=== PATIENT | female | born 1960 | race Caucasian/White ===

== ENCOUNTER 2022-07-27 19:20 | Emergency (ER) | payer OTHER, SELFPAY ==
--- NOTE | ~2022-07-27 | CT_ITS ---
EXAMINATION: CT abdomen pelvis wo con DATE: 07/27/2022 22:47 INDICATION: back pain with abdominal pain TECHNIQUE: Computed tomography (CT) of the abdomen and pelvis was performed without intravenous contr ast. Automated exposure control and iterative reconstruction technique were employed. The dose-length product was 1222.48 mGy-cm. COMPARISON: None. FINDINGS: Lower thorax: Aortic and coronary artery calcification. Dependent atelectasis. Small uncomplicated fa t-containing anterior diaphragmatic hernia. Liver: Normal. Biliary/Gallbladder: Gallbladder is absent. No bile duct dilation. Pancreas: No mass or duct dilation. Spleen: Normal. Adrenals:No mass. Kidneys: Bilateral cortical thinning and scarring. Medullary calcinosis. Bilateral nephrolithiasis. N o hydronephrosis or distal collecting system stone. Simple left midpole cyst. GI tract: No small or large bowel dilation. Appendix not visualized. Diverticulosis without diverticu litis. Mesentery/Peritoneum: No ascites, mass, or free air. Retroperitoneum: No mass. Atherosclerotic abdominal aortic and/or arterial calcifications. Pelvis: Pelvic organs are within normal limits. Soft Tissues: Soft tissues and body wall unremarkable. Bones: No acute osseous finding. IMPRESSION: No acute abdominopelvic process detected. Reviewed, dictated and finalized at location K.
[2022-07-27 19:53] VITALS: BP 146/72; PULSE 82; RESP 18; TEMP 36.4; O2SAT 99
[2022-07-27 20:40] VITALS: BP 144/74; PULSE 78; RESP 20; O2SAT 98
--- NOTE | 2022-07-27 20:54 | ED.BACK ---
HPI - Back Pain/Injury General Chief Complaint: Back Pain/Injury Stated Complaint: back pain Time Seen by Provider: 07/27/22 20:33 Source: patient and RN notes reviewed Mode of arrival: ambulatory Limitations: no limitations History of Present Illness HPI Narrative: This is a 61 year old female who presents for evaluation of lower back pain. PAtient states starting 1.5 weeks ago she developed low back pain that radiates around to have lower abdomen. This pain has been constant and worsening. It is worse with walking and breathing. She has tried taking tylenol without improvement with pain and her last dose was 2 hours ago. She reports increased urinary urgency today with incontinence because she could not make it to the restroom. She denies lower extremity numbness, tingling or weakness. She denies any injuries to cause her pain. She denies fever, chills, nausea or vomiting. She reports having sciatica to left hip 2 weeks prior to this back pain. Related Data Allergies Allergy/AdvReac Type Severity Reaction Status Date / Time No Known Allergies Allergy Verified 07/27/22 20:27 Review of Systems Review of Systems: All systems reviewed & are unremarkable except as noted in HPI and below Constitutional: Constitutional: Denies chills, Denies fatigue and Denies fever(s) Cardiovascular: Cardiovascular: Denies chest pain Gastrointestinal: Gastrointestinal: Reports abdominal pain, Denies diarrhea, Denies nausea and Denies vomiting Genitourinary: Genitourinary: Reports flank pain and Reports urinary incontinence Musculoskeletal: Musculoskeletal: Reports back pain [facility] Past Medical History Medical History (Updated 07/28/22 @ 00:28 by Shantelle Ponce MD) Hypertension Rheumatoid arthritis Surgical History Surgical History (Updated 07/27/22 @ 20:59 by Shantelle Ponce MD) History of cholecystectomy Social History Social History (Updated 07/27/22 @ 21:00 by Shantelle Ponce MD) Smoking status: Never smoker Exam Const: General: alert Nutritional Appearance: obese Orientation/consciousness: patient oriented x3 Limitations: no limitations HENMT: Head: normal to inspection Eyes: EOM: EOMs intact bilaterally Chest: Chest palpation & inspection: normal inspection of the chest Resp: Effort & Inspection: normal respiratory effort Auscultation: clear to auscultation bilaterally Cardio: Rate: regular rate Rhythm: regular rhythm Heart sounds: no murmurs GI: GI Palp: Yes Soft to palpation, Yes Tenderness to palpation present (GI), No Guarding due to palpation present (GI) and No Rigid due to palpation Auscultation: normal bowel sounds Back/Spine/Pelvis: Back: no CVA tenderness Thoracic/Lumbar Spine: thoracic and lumbar spine normal to inspection Skin: General skin exam: normal color Rashes: no rashes Wounds: no wounds Neuro: General: patient oriented x3, moves all extremities and CN's II-XI intact bilaterally Speech: normal speech Extrem: General: normal to inspection Psych: Mental Status: mental status grossly normal Course Reevaluation(s) Reevaluation #1: I Discussed with patient that she will be started on muscle relaxers and started on antibiotics for UTI. She denies any other questions or concerns. Date: 07/27/22 Time: 23:50 Vital Signs Vital signs: Vital Signs Temperature 97.6 F 07/27/22 19:53 Pulse Rate 82 07/27/22 19:53 Respiratory Rate 18 07/27/22 19:53 Blood Pressure 146/72 H 07/27/22 19:53 Pulse Oximetry 99 07/27/22 19:53 Oxygen Delivery Room Air 07/27/22 19:53 Temperature 97.6 F 07/27/22 19:53 Pulse Rate 84 07/27/22 23:45 Respiratory Rate 20 07/27/22 23:45 Blood Pressure 136/81 07/27/22 23:45 Pulse Oximetry 100 07/27/22 23:45 Oxygen Delivery Room Air 07/27/22 19:53 MDM - Back Pain/Injury Lab Data Attestation: I reviewed the patient's lab results. Result diagrams: 07/27/22 21:12 07/27/22 21
[2022-07-27] MEDS: ONDANSETRON INJ 4 MG/2 ML VIAL IV PUSH (21:21)
[2022-07-27] MEDS: MORPHINE SULFATE (*CRX) 4 MG/ML INJ IV PUSH (21:21)
[2022-07-27 21:23] LABS: Hematocrit 37.4 % (37.0-47.0); Hemoglobin 12.3 g/dL (12.0-15.0); Mean Corpuscular HGB Conc 32.9 g/dl (32-36); Mean Corpuscular Hemoglobin 34.6 pg (26-34); Mean Corpuscular Volume 105.1 fl (80-100); Mean Platelet Volume 9.1 fl (7.4-10.4); Platelet Count Result 223 k/mm3 (150-375); Red Blood Count 3.56 M/mm3 (4.2-5.4); Red Cell Distribution Width 15.1 % (11.5-14.5); White Blood Count 6.6 K/mm3 (4.5-10.0)
[2022-07-27 21:24] LABS: Appearance Urine Clear (Clear); Bilirubin Urine Negative (Negative); Blood Urine Negative (Negative); Color Urine Yellow (Yellow); Glucose Urine UA Negative (Negative); Ketones Urine Negative (Negative); Leukocyte Esterase Ur 2+ LEU/UL (Negative); Nitrate Urine Negative (Negative); Protein Urine Negative (Negative); Specific Grav Ur 1.015 (1.001-1.035); Urobilinogen Urine 0.2 mg/dL (<2.0); pH Urine 5.5 (5.0-9.0)
[2022-07-27 21:35] VITALS: BP 141/71; PULSE 71; RESP 16; O2SAT 100
[2022-07-27 21:39] LABS: Partial Thromboplastin Time 27.1 SECONDS (22.3-36.8); Prothrombin Time 12.9 Seconds (11.1-14.7)
[2022-07-27 21:45] LABS: RBC Urine 0-2 /hpf (0-2); Squamous Epithelial Cell Urine Few /hpf (Few); WBC Urine 0-3 /hpf
[2022-07-27 21:46] LABS: Add Urine Microscopic? YES
[2022-07-27 21:52] LABS: Alanine Aminotransferase 31 U/L (6-35); Albumin Level 4.2 g/dL (3.5-5.1); Alkaline Phosphatase 53 U/L (38-126); Anion Gap 13 mmol/L (8-16); Aspartate Amino Transferase 39 U/L (14-36); Band Neutrophils Percent 3 % (0-6); Bilirubin,Total 0.4 mg/dL (0.2-1.3); Blood Urea Nitrogen 29 mg/dL (7-17); Calcium 9.8 mg/dL (8.4-10.2); Carbon Dioxide 25 mmol/L (22-30); Chloride 101 mmol/L (98-107); Eosinophils Absolute Manual 0.13 K/mm3 (0.02-0.5); Eosinophils Percent Manual 2 % (0-4); Estimated Glomerular Filt Rate 27; Glucose 112 mg/dL (65-110); Lymphocytes Absolute Manual 2.57 K/mm3 (1.1-4.5); Metamyelocytes Percent 3 %; Monocytes Absolute Manual 0.33 K/mm3 (0.1-0.90); Monocytes Percent Manual 5 % (3-9); Myelocytes Percent 2 %; Neutrophils Absolute Manual 3.16 K/mm3 (1.7-7.2); Neutrophils Percent Manual 45 % (46-73); Nucleated Red Blood Cells 1 %; Plasma Cells 1; Platelet Estimate Adequate (Adequate); Potassium 4.2 mmol/L (3.4-5.0); Sodium 139 mmol/L (137-145); Total Cells Counted 100
[2022-07-27 21:53] LABS: Anisocytosis 2+ (NORMAL); Atypical Lymphocytes Present; Macrocytosis 2+ (NORMAL); Smudge Cells MODERATE; Spherocytes 1+ (NORMAL)
[2022-07-27 21:54] LABS: Stomatocytes 1+ (NORMAL)
[2022-07-27 21:55] LABS: Schistocytes None Seen (NORMAL)
[2022-07-27] MEDS: SODIUM CHLORIDE 0.9% IV 1,000 ML 999 ML IV CONT (22:09)
[2022-07-27 22:26] VITALS: BP 138/74; PULSE 80; RESP 20; O2SAT 98
[2022-07-27 23:45] VITALS: BP 136/81; PULSE 84; RESP 20; O2SAT 100
== END 2022-07-28 00:42 | disposition home or self-care (01) ==
PROVIDERS: Emergency Provider General Practice; PCP Internal Medicine
DX: M54.50 Low back pain, unspecified (principal); I12.9 Hypertensive chronic kidney disease with stage 1 through stage 4 chronic kidney disease, or unspecified chronic kidney disease; N18.9 Chronic kidney disease, unspecified; M06.9 Rheumatoid arthritis, unspecified; N39.0 Urinary tract infection, site not specified
CPT/HCPCS: 36415; 74176; 80053; 81001; 85025; 85610; 85730; 96361; 96374; 96375; 99284; J2270; J2405; J7030

== ENCOUNTER 2025-05-08 11:32 | Inpatient (IN) | payer OTHER, SELFPAY ==
[2025-05-08] VITALS (9 sets, daily range): BP systolic 77–124; BP diastolic 31–86; PULSE 70–107; RESP 14–22; TEMP 36.6; O2SAT 95–100; BMI 46.0
--- NOTE | ~2025-05-08 | XR_ITS ---
EXAMINATION: XR chest 1V portable DATE: 05/08/2025 12:43 INDICATION: Hypotension TECHNIQUE: frontal view of the chest was obtained. COMPARISON: Chest radiograph dated 02/05/2018 FINDINGS: The lungs are clear with no focal airspace opacities, pulmonary edema, pleural effusion or pneumothor ax. Heart size is normal. Prominent right paracardial fat pad. IMPRESSION: 1. No acute cardiopulmonary disease. Reviewed, dictated and finalized at location B.
--- OUTSIDE RECORDS SUMMARY | 2025-05-08 11:34 | XMS_ITS | Referral Summary ---
Author Organization [facility] Address [address] [place] [address] Care Team Providers Care Glass Silverer Name Role Phone Jose Dahl MD Primary Care Provider [phone] Sam Gonsalez MD Unavailable [phone] Encounters Date Type Department Care Team Description 04/29/2025 Results Follow-Up [facility] Rheumatology [address] [facility] [address] [place] [address] Erin Jamil MD Comprehensive metabolic panel, CBC with auto differential 04/28/2025 2:15 PM CDT - 04/28/2025 11:59 PM CDT Hospital Encounter [facility] [address] [place] [address] Erin Jamil MD Discharge Disposition: Discharge to home or self care 04/28/2025 2:00 PM CDT Lab [facility] Endocrinology Metabolism and Lipid [address] [facility] Advanced Medicine 5th [place] [address] [place] [address] High risk medication use 04/28/2025 1:30 PM CDT Office Visit [facility] Rheumatology [facility] Medicine 5th [place] [address] [place] [address] Erin Jamil MD Rheumatoid arthritis with rheumatoid factor of multiple sites without organ or systems involvement (HCC) (Primary Dx); Neuropathy of left ulnar nerve at wrist; High risk medication use; Chronic gout involving toe without tophus, unspecified cause, unspecified laterality; Primary osteoarthritis of right knee; Age-related osteoporosis with current pathological fracture, sequela; Compression fracture of body of thoracic vertebra (HCC); Chronic pain syndrome 03/07/2025 7:10 PM CDT Lab [facility] ([facility]) [address] [place] [phone] Osteoporosis with current pathological fracture, unspecified osteoporosis type, sequela; Renal osteodystrophy; Osteoporosis, unspecified osteoporosis type, unspecified pathological fracture presence 03/07/[address] [place] [address] Mahesh Neal MD 03/07/2025 2:20 PM CDT Office Visit [address] 5th [place] [address] [place] [address] Mahesh Neal MD Osteoporosis with current pathological fracture, unspecified osteoporosis type, sequela (Primary Dx); Renal osteodystrophy; Osteoporosis, unspecified osteoporosis type, unspecified pathological fracture presence; Chronic renal impairment, stage 3b (HCC); Chronic kidney disease-mineral and bone disorder (CKD-MBD) 03/05/[address] Medical Office [address] [place] [address] Nidia Spencer DNP 02/18/2025 11:00 AM CDT Office Visit [facility] Surgery [address] [place] [address] [address] [place] [address] Delma Murray MD Lesion of pancreas 02/08/2025 11:40 AM CDT Lab [facility]) [address] [place] [phone] CKD (chronic kidney disease) stage 4, GFR 15-29 ml/min ([facility]); Pancreas cyst; Osteoporosis, unspecified osteoporosis type, unspecified pathological fracture presence from Last 3 Months Allergies No known active allergies Medications calcium carbonate-vit D3-min 600 mg calcium- 400 unit tabletIndication s:Osteoporosis Take 600 mg by mouth 2 (two) times a day 60 each 8 04/23/20 19 Active Additional Information Patient not taking.Reported on 04/28/2025 albuterol HFA (PROVENTIL HFA,VENTOLIN HFA,PROAIR HFA) 90 mcg/actuation inhaler Inhale 2 puffs every 6 (six) hours as needed for wheezing 1 Inhaler 4 04/23/20 19 Active nortriptyline (PAMELOR) 25 mg capsule TAKE 1 CAPSULE BY MOUTH EVERY DAY IN THE EVENING 90 capsule 3 03/22/20 22 Active nitroglycerin (NITROSTAT) 0.4 mg SL tablet 03/09/20 23 Active HYDROcodone-acet aminophen (NORCO) 5-325 mg per tablet Take by mouth 3 (three) times a day as needed 11/07/19 24 Active tiZANidine (ZANAFLEX) 2 mg tablet Take 1 tablet (2 mg total) by mouth every 8 (eight) hours as needed for muscle spasms 20 tablet 12/13/19 24 Active acetaminophen (TYLENOL) 500 mg tabletIndication s:Pain Take 1-2 tablets (500-1,000 mg total) by mouth every 6 (six) hours as needed for pain (1 tablet for mild to moderate pain. 2 tablets for severe pain) 30 tablet 12/13/19 24 Active lidocaine (ASPERCREME) 4 % adhesive patch,medicated Place 1 patch on the skin daily as needed (pain) 10 patch 12/13/19 24 Active furosemide (LASIX) 20 mg tablet 12/11/19 24 Active lisinopriL (PRINIVIL,ZESTRI L) 40 mg tablet 12/10/19 24 Active cyclobenzaprine (FLEXERIL) 5 mg tablet TAKE 1 TABLET BY MOUTH EVERY DAY AT BEDTIME FOR SPASMS 12/28/19 24 Active doxycycline (ADOXA) 100 mg tablet 03/03/20 24 Active benzonatate (TESSALON) 200 mg capsule 03/03/20 24 Active folic acid (FOLVITE) 1 mg tabletIndication s:Folate Deficiency Take 2 tablets (2,000 mcg total) by mouth daily 180 tablet 3 03/05/20 24 Active colchicine (COLCRYS) 0.6 mg tabletIndication s:prevention of acute gout attack Take 0.5 tablets (0.3 mg total) by mouth daily Stop medication and notify provider if develop diarrhea 15 tablet 11 03/08/20 24 Active amLODIPine (NORVASC) 5 mg tablet Take 1 tablet (5 mg total) by mouth daily 90 tablet 3 04/18/20 24 Active amLODIPine (NORVASC) 10 mg tablet Take 1 tablet (10 mg total) by mouth daily 06/27/20 24 Active atorvastatin (LIPITOR) 40 mg tablet Take 1 tablet (40 mg total) by mouth daily 90 tablet 3 11/21/19 25 Active abaloparatide 80 mcg (3,120 mcg/1.56 mL) pen injectorIndicati ons:Age-related osteoporosis without current pathological fracture Inject 0.04 mL (80 mcg total) under the skin daily 1.56 mL 12/10/19 25 Active pen needle, diabetic (BD Ultra-Fine Mini Pen Needle) 31 gauge x /16 needleIndication s:Age-related osteoporosis without current pathological fracture Use one needle daily with pen 100 each 12/10/19 25 Active methotrexate 2.5 mg tabletIndication s:Rheumatoid Arthritis Take 6 tablets (15 mg total) by mouth every 7 days 72 tablet 1 01/09/20 25 Active dapagliflozin propanediol (FARXIGA) 5 mg tablet Take 1 tablet (5 mg total) by mouth daily 90 tablet 3 01/17/20 25 026 Active allopurinoL (ZYLOPRIM) 100 mg tabletIndication s:Chronic gout involving toe without tophus, unspecified cause, unspecified laterality TAKE 1 TABLET BY MOUTH EVERY DAY 90 tablet 02/12/20 25 Active ibuprofen (ADVIL,MOTRIN) 800 mg tablet as needed 04/28/20 25 Active metFORMIN (GLUCOPHAGE) 500 mg tablet Take 1 tablet (500 mg total) by mouth daily 04/10/20 25 Active methylPREDNISolo ne (MEDROL DOSEPACK) 4 mg Dosepack 5 mg 03/03/20 24 025 Discontin ued(Thera py completed ) predniSONE (DELTASONE) 5 mg tablet Take 1 tablet (5 mg) by mouth every morning 04/10/20 25 025 Discontin ued(Thera py completed ) Active Problems Problem Noted Date Diagnosed Date Primary osteoarthritis of right knee 07/16/2024 Mild left ventricular systolic dysfunction (LVSD ) 12/13/2023 Pyelonephritis 11/13/2023 Assessment & Plan (11/15/2023 12:23 PM PIG MACHINE SUPERVISOR): Presents with several days of nausea, vomiting and loose stools. UA with 4+ bacteria and >50 WBCs -CT abdomen with concern for bilateral pyelonephritis -urine culture and blood cultures grew ghosh susceptible E.coli -given cefepime, vancomycin, ceftriaxone and flagyl while in ER -transition ceftriaxone to cefdinir to complete course -repeat blood cultures 11/14 no growth to date -continue supportive care and judicious volume resuscitation - given 500ml NS bolus yesterday, encourage po intake Assessment & Plan (11/14/2023 4:16 PM PIG MACHINE SUPERVISOR): Presents with several days of nausea, vomiting and loose stools. UA with 4+ bacteria and >50 WBCs -CT abdomen with concern for bilateral pyelonephritis -urine culture and blood cultures growing E. coli -given cefepime, vancomycin, ceftriaxone and flagyl while in ER -continue ceftriaxone 2g q24h -repeat blood cultures -continue supportive care and judicious volume resuscitation NSTEMI (non-ST elevated myocardial infarction) 0 11/12/2023 Assessment & Plan (11/15/2023 12:27 PM PIG MACHINE SUPERVISOR): -elevated troponin to 3786 in ED with no acute ischemic changes on EKG -previous [facility] 10/20/22 with 40% mid LAD, 75% ostial small 1st diagonal, 50% mid RCA -elevated troponin likely reflects increased demand in setting of infection -treat infection as outlined above -tele -TTE with EF 48% (decreased from 55-60% in 10/2022) -plan for repeat ischemic eval as an outpatient once infection and EUNICE resolved Assessment & Plan (11/14/2023 4:17 PM PIG MACHINE SUPERVISOR): -elevated troponin to 3786 in ED with no acute ischemic changes on EKG -previous [facility] 10/20/22 with 40% mid LAD, 75% ostial small 1st diagonal, 50% mid RCA -elevated troponin likely reflects increased demand in setting of infection -treat infection as outlined above -TTE -tele Chronic coronary artery disease 10/11/2023 BMI 40.0-44.9, adult 10/11/2023 Osteoarthritis of left knee, unspecified osteoarthritis type 09/21/2023 Assessment & Plan (09/22/2023 4:57 PM PIG MACHINE SUPERVISOR): Patient with history of bilateral osteoarthritis now presenting with left greater than right knee pain inability to stand. - plan for supportive care with Tylenol, topical therapy, and opioids as needed - given history of gout and recent initiation of Lasix, may also be gout flare. Uric acid 11.3 - patient also with history of seronegative arthritis however no other joint involvement at this time. ESR and CRP are elevated. - rheumatology ddx included likely OA given the mild nature of her swelling and joint warmth without erythema. However, RA and gout flare are also possible and recommended 7 days of 20mg prednisone and follow up with them as scheduled in Nov. - PT/OT recommended outpatient therapy, referrals sent [place] (obstructive sleep apnea) 04/27/2023 Assessment & Plan (09/03/2024 10:48 AM CDT): Patient continue to wear CPAP at 8 cm water pressure while sleeping. Her DME is [facility]. Assessment & Plan (11/15/2023 12:24 PM PIG MACHINE SUPERVISOR): -continue home CPAP Assessment & Plan (11/13/2023 6:43 PM PIG MACHINE SUPERVISOR): -continue home CPAP Assessment & Plan (09/21/2023 4:09 PM PIG MACHINE SUPERVISOR): CPAP at 8 Assessment & Plan (08/31/2023 11:54 AM CDT): Patient continue to wear her CPAP at 8 cm water pressure while sleeping. Her DME is [facility]. I have sent an order over for new supplies. Assessment & Plan (04/27/2023 10:50 AM CDT): The patient continues to benefit from CPAP at 6 cm water pressure. Her AHI is slightly elevated at 7.7 and she has been using the CPAP unit more than 5 hours per night. I will send an order to [facility] to increase the CPAP setting to 8 cm water. She will follow up here in 4 months. PLMD (periodic limb movement disorder) Assessment & Plan (09/03/2024 10:48 AM CDT): The patient denies that her limbs are moving at night when she sleeps Assessment & Plan (08/31/2023 11:54 AM CDT): The patient denies that her limbs are moving at night when she sleeps. The patient did have a normal iron and ferritin level. Assessment & Plan (04/27/2023 10:49 AM CDT): The patient has periodic limb movements in sleep but she is asymptomatic. I will not start any medications and she has an elevated BUN and creatinine of 40/1.62 from recent blood work. I will check iron studies. Pain of right hip joint 04/27/2023 Osteoarthritis of lumbar spine 08/02/2022 Chronic kidney disease-mineral and bone disorder (CKD-MBD) 08/02/2022 Assessment & Plan (03/07/2025 3:32 PM CDT): CKD-MBD with CKD 3b c/b rHPT and osteoporosis -PTH likely at target given Ca/Phos wnl -25D level NA and will assess - target > 40 ng/mL -OP: Please see OP section on management Chronic midline low back pain without sciatica 1 11/24/2017 Assessment & Plan (04/23/2019 8:43 AM CDT): - Xray with multilevel degenerative disc disease - Stable, seen by neursosurgery in the past with plan to for surgery after she looses 50Ib but currently she is not amenable to surgery given her improved back pain. - No alarm symptoms - Continue healthy eating, weight loss and exercise - Continue tylenol 1000 mg q8h Assessment & Plan (09/25/2018 9:39 AM PIG MACHINE SUPERVISOR): - Xray with multilevel degenerative disc disease - Stable, seen by neursosurgery in the past with plan to for surgery after she looses 50Ib but currently she is not amenable to surgery given her improved back pain. - Continue healthy eating, weight loss and exercise - Continue tylenol 1000 mg q8h High risk medication use 07/13/2018 Assessment & Plan (08/29/2019 9:38 AM CDT): - cont rheum follow up. - patient out of folic acid, refilled today. Osteoporosis 05/16/2014 Assessment & Plan (03/07/2025 3:27 PM CDT): Osteoporosis with vertebral factures, LS BMD in osteopenic range and FN and TH T-Scores at -3.2 and -2.6 respectively. She has been on tymlos since January 2025. She will continue treatment x 2 years. Today we will assess treatment efficacy and obtain BSAP, CTX, PTH, D and to assess for adverse effects Phos/Ca/UA. We will base drug dosage and management on those labs. If she is noted to have excessive bone turnover, we will consider another course of action, including initiation of a bisphosphonate. Cristina is not indiacted due to the vert fx. She is unable to perform much exercise due to high degree of back pain from the vert fx. She has done some PT and she will restart once the back pain improves. Assessment & Plan (04/23/2019 8:50 AM CDT): - According to DEXA in 04/2014. Ca and PTH wnl. - S/p 5 years of alendronate. - Repeat DEXA 2017 with Bone Mineral Density (BMD) of the left hip total of 0.850 Gm/cm2 corresponding to a T-score standard deviations from the mean of young adults of -0.8. Femoral neck is 0.682 gm/cm2 with a T-score of -1.5. - Above finding as consistent with osteopenia. - Repeat DEXA in 2019 - Continue Ca and Vit D Assessment & Plan (09/24/2018 5:26 PM PIG MACHINE SUPERVISOR): According to DEXA in 04/2014. Ca and PTH wnl. -- s/p alendronate started 01/2011 w/ improved femoral head from -2.6->-2.0 on DEXA scan -- Now off alendronate, continue to monitor - Continue Ca and Vit D Fibromyalgia 05/21/2012 Assessment & Plan (05/29/2020 9:29 AM CDT): Continue nortriptyline 25 nightly Chronic renal insufficiency, stage III (moderate ) 12/14/2011 Assessment & Plan (03/07/2025 3:30 PM CDT): CKD 3b with eGFR 30/min. Management as per primary neprhologist. Tymlos does not have any affect on kidney function, but pts with CKD given Tymlos are monitored for hyperCa, hyperUA. Ca and UA are pending and in the event of elevations, the drug interval will be extended rather than stopped. Level of kidney function does not affect the drug dose. Assessment & Plan (11/15/2023 12:32 PM PIG MACHINE SUPERVISOR): Baseline Cr 1.6-2.0 -Cr 2.37, EUNICE likely secondary to infection -monitor closely while treating pyelonephritis -renally dose meds, minimize nephrotoxins -CT with ill-defined masslike lesion left kidney upper pole. Recommend further evaluation with renal protocol MRI without and with intravenous contrast - will consider MRI as an outpatient once EUNICE resolves. Assessment & Plan (11/13/2023 6:51 PM PIG MACHINE SUPERVISOR): Baseline Cr 1.6-2.0 -currently at baseline on admission -monitor closely while treating pyelonephritis -renally dose meds, minimize nephrotoxins Assessment & Plan (09/22/2023 5:01 PM PIG MACHINE SUPERVISOR): Patient with CKD stage 3. Creatinine slightly increased from baseline however not necessarily significantly increased. Recently started on Lasix for bilateral lower extremity edema. - Will hold Lasix as patient appears euvolemic - avoid NSAIDs and renally dose meds - continued lisinopril, held lisinopril on day of discharge I/s/o K - 5.1, whole K 4.3 and Cr improving to baseline - recommended patient follow up with her primary about lasix Assessment & Plan (05/29/2020 9:31 AM CDT): Mild elevation in Cr at recent BMP w/ mild hypercalcemia. iCal and PTH at upper limites of normal today. Discussed with patient to hold off on Calcium supplements until next visit so we can recheck BMP at that time and see if that is the likely culprit of her initial lab abnormality. Assessment & Plan (04/23/2019 8:46 AM CDT): - F/w [facility] nephrology - Secondary to hypertensive nephropathy and chronic NSAID use - Serum stable at Cr 1.4 with a GFR between 40-60 - Avoid nephrotoxins, cont to f/u with nephrology Assessment & Plan (09/25/2018 3:27 PM PIG MACHINE SUPERVISOR): F/w [facility] nephrology - Secondary to hypertensive nephropathy and chronic NSAID use - Serum Cr 1.4, recheck BMP in two weeks - Avoid nephrotoxins, cont to f/u with nephrology Hypertension 02/05/2011 Assessment & Plan (11/15/2023 12:28 PM PIG MACHINE SUPERVISOR): -hold home lisinopril and amlodipine for now while treating infection -monitor closely Assessment & Plan (11/14/2023 4:18 PM PIG MACHINE SUPERVISOR): -hold home lisinopril and amlodipine for now while treating infection -monitor closely Assessment & Plan (09/22/2023 4:59 PM PIG MACHINE SUPERVISOR): Continue amlodipine and Lisinopril - held lisinopril on day of discharge Assessment & Plan (05/29/2020 9:27 AM CDT): Well controlled today. Continue Lisinopril 40 and Amlodipine 10 Assessment & Plan (08/29/2019 9:37 AM CDT): BP above goal today 150/80 - currently only taking amlodipine 10. Previously tolerated lisinopril in the past - re-start lisinopril 40 today - pt regularly takes BP at home, virtually always 150/80-90 - continue low salt diet - Pt will call if BP still elevated after several weeks on lisinopril, or if BP goes well below goal. Will watch for orthostasis, dizziness, lightheadedness, cough Assessment & Plan (04/23/2019 8:45 AM CDT): - BP initially 142/87 but then 138/80 on recheck - Continue amlodipine 10 mg and start Lisinopril 40 mg qd - No changes made to currently antihypertensive regimen - Patient instructed to limit her salt in take to less than 2 g daily and to engage in regular exercise activities Assessment & Plan (09/25/2018 3:26 PM PIG MACHINE SUPERVISOR): - BP still elevated to 162/84 - Continue amlodipine 10 mg and start Lisinopril 20 mg qd - Patient was instructed to return to clinic in two weeks for a visit with the BP nurse but seems to have problems with transportation. She was then informed to monitor her BP at home and call PCP in two weeks with readings. Rheumatoid arthritis 07/13/2006 Assessment & Plan (11/15/2023 12:19 PM PIG MACHINE SUPERVISOR): History of seronegative RA -last dose of methotrexate 11/07/23, will hold while treating infection Assessment & Plan (11/14/2023 4:07 PM PIG MACHINE SUPERVISOR): History of seronegative RA -last dose of methotrexate 11/07/23, will hold while treating infection Assessment & Plan (09/21/2023 4:09 PM PIG MACHINE SUPERVISOR): Seronegative RA followed by rheumatology MTX 15mg q week on Tuesdays and folic acid Assessment & Plan (05/29/2020 9:27 AM CDT): Cont MTX and Folic Acid per rheum Assessment & Plan (08/29/2019 9:35 AM CDT): - Follows with [facility] rheumatology - Symptoms manageable with current MTX regimen w/ no recent episodes of a flare - No boutoniere or swan neck deformity and no synovitis - No signs or symptoms of RA complication and labs are wnl - Cont to follow up with rheumatology Assessment & Plan (04/23/2019 7:55 AM CDT): - Follows with [facility] rheumatology - Symptoms manageable with current MTX regimen w/ no recent episodes of a flare - No boutoniere or swan neck deformity and no synovitis - No signs or symptoms of RA complication and labs are wnl - Cont to follow up with rheumatology Assessment & Plan (09/24/2018 5:24 PM PIG MACHINE SUPERVISOR): - Follows with [facility] rheumatology - Symptoms manageable with current MTX regimen w/ no recent episodes of a flare - No boutoniere or swan neck deformity and no synovitis - No signs or symptoms of RA complication and labs are wnl - Cont to follow up with rheumatology Resolved Problems Problem Noted Date Diagnosed Date Resolved Date Snoring 11/29/2022 04/27/2023 Assessment & Plan (11/29/2022 11:04 AM PIG MACHINE SUPERVISOR): I have ordered a nocturnal polysomnogram split night protocol if necessary, no MSLT. Hypersomnia 11/29/2022 04/27/2023 Bursitis of right shoulder 05/29/2020 1 12/24/2019 Assessment & Plan (05/29/2020 9:48 AM CDT): Exam and symptoms consistent with shoulder bursitis and impingement of rotator cuff. We discussed the benefits of ongoing PM&R visits along with at home exercises and stretches. She was provided a handout from [facility]. She will trial APAP PRN and was instructed not to exceed 4g daily Primary insomnia 04/28/2020 10/23/2020 Healthcare maintenance 09/24/201810/23 Overview (05/29/2020): Colonoscopy: 2016 ( small and large mouth diverticula in the sigmoid and descending colon. Mammogram: 02/19/19, wnl , repeat ordered 05/2020 DEXA: ASCVD 10 year risk: lipids today Statin: n/a A1C: 5.3% (01/2016), recheck 05/2020 Patient does not smoke PNA: 2015 Tdap: 07/12/17 HIV: Neg (05/2004) Hep C negative Pap- due in 2020 Influenza- 09/25/18 Assessment & Plan (08/29/2019 9:39 AM CDT): Colonoscopy: 2016 ( small and large mouth diverticula in the sigmoid and descending colon. Mammogram: 02/19/19, wnl , repeat in 02/2020 DEXA: see above ASCVD 10 year risk: 6.0% Statin: n/a A1C: 5.3% (01/2016) Patient does not smoke PNA: 2015 Tdap: 07/12/17 HIV: Neg (05/2004) Hep C negative Pap- due in 2020 Influenza- 09/25/18 - refused flu shot today, counseled Assessment & Plan (04/23/2019 8:51 AM CDT): Colonoscopy: 2016 ( small and large mouth diverticula in the sigmoid and descending colon. Mammogram: 02/19/19, wnl , repeat in 02/2020 DEXA: see above ASCVD 10 year risk: 6.0% Statin: n/a A1C: 5.3% (01/2016) Patient does not smoke PNA: 2015 Tdap: 07/12/17 HIV: Neg (05/2004) Hep C negative Pap- due in 2020 Influenza- 09/25/18 Assessment & Plan (09/25/2018 3:29 PM PIG MACHINE SUPERVISOR): Colonoscopy: 2016 ( small and large mouth diverticula in the sigmoid and descending colon. Mammogram: 06/2017, wnl DEXA: see above ASCVD 10 year risk: 6.0% Statin: n/a A1C: 5.3% (01/2016) Patient does not smoke PNA: 2015 Tdap: 07/12/17 HIV: Neg (05/2004) Hep C negative Pap- due in 2020 Influenza- 09/25/18 Osteoarthritis of knee 05/18/201510/23 Assessment & Plan (04/23/2019 7:54 AM CDT): - Xray with moderate patellofemoral compartment predominant tricompartmental right knee osteoarthritis. - Tylenol 1 g q8h prn Assessment & Plan (09/25/2018 9:49 AM PIG MACHINE SUPERVISOR): Xray with moderate patellofemoral compartment predominant tricompartmental right knee osteoarthritis. - Tylenol 1 g q8h prn Immunizations Immunization Administration Dates Next Due Influenza, Quadrivalent, Spl it, Preservative Free, Intramuscular 09/25/2018 Social History Tobacco Use Types Packs/Day Years Used Date Smoking Tobacco: Never Smokeless Tobacco: Never Tobacco Cessation:Counseling Given: Not Answered Alcohol Use Standard Drinks/Week Comments No 0 (1 standard drink = 0.6 oz pur e alcohol) [facility] Utilities Answer Date Recorded In the past 12 months has e [employer], gas, oil, or water [employer] threatened to shut off services in your home? Patient declined 11/17/2023 Social Connection and Isolation Panel [NHANES] A nswer Date Recorded In a typical week, how many times do you talk on the phone with family, friends, or neighbors? Patient declined 11/17/2023 How often do you get togethe r with friends or relatives? Patient declined 11/17/2023 How often do you attend jew or protestant serv ices? Patient declined 11/17/2023 Do you belong to any clubs o r organizations such as jew groups, unions, fraternal or athletic groups, or school groups? Patient declined 11/17/2023 How often do you attend meet ings of the clubs or organizations you belong to? Patient declined 11/17/2023 Are you , , di vorced, , never , or living with a partner? Patient declined 11/17/2023 AUDIT-C Answer Date Recorded Q1: How often do you have a drink containing alcohol? Never 05/15/2024 Q2: How many drinks containi ng alcohol do you have on a typical day when you are drinking? Patient does not drink Q3: How often do you have si x or more drinks on one occasion? Never 05/15/2024 Overall Financial Resource Strain (CARDIA) Answe r Date Recorded How hard is it for you to pa y for the very basics like food, housing, medical care, and heating? Patient declined 11/17/2023 Hunger Vital Sign Answer Date Recorded Within the past 12 months, y ou worried that your food would run out before you got the money to buy more. Never true 05/15/20 24 Within the past 12 months, t he food you bought just didn't last and you didn't have money to get more. Never true 05/15/2024 PRAPARE - Transportation Answer Date Re corded In the past 12 months, has l ack of transportation kept you from medical appointments or from getting medications? Patient declined 11/17/2023 In the past 12 months, has l ack of transportation kept you from meetings, work, or from getting things needed for daily living? Patient declined 11/17/2023 Housing Stability Vital Sign Answer Raul e Recorded In the last 12 months, was t here a time when you were not able to pay the mortgage or rent on time? Patient declined 11/17/19 In the last 12 months, how many places have you lived? 0 11/17/2023 In the last 12 months, was t here a time when you did not have a steady place to sleep or slept in a longterm (including now)? Patient declined 11/17/2023 Personal Safety Answer Date Recorded Have you ever been in or are you currently in a harmful physical or emotional relationship or is someone making you feel afraid or unsafe? Denies 12/12/2023 Comments No Sex and Gender Information Value Date Recorded Sex Assigned at Not on file Legal Sex Female 7:25 PM [employer] Gender Identity Female 07/13/2018 10:19 AM CDT Sexual Orientation Not on file Last Filed Vital Signs Vital Sign Reading Time Taken Comments Blood Pressure 143/74 04/28/2025 12:40 PM CDT Pulse 91 04/28/2025 12:40 PM CDT Temperature 36.6 C (97.8 F) 04/28/2025 12:40 PM CDT Respiratory Rate 16 02/18/2025 10:33 AM CDT Oxygen Saturation 99% 04/28/2025 12:40 PM CDT Inhaled Oxygen Concentration - - Weight 101.2 kg (223 lb) 04/28/2025 12:40 PM CDT Height 149.9 cm (4' 11) 04/28/2025 12:40 PM CDT Body Mass Index 45.04 04/28/2025 12:40 PM CDT Plan of Treatment Scheduled Procedures Name Priority Associated Diagnoses Date/Ti me COLONOSCOPY Healthcare maintenance Goals Goal Patient Goal Type Associated Problems Recent Progress Patient-Stated? Author TWILA General Goal - Patient schedules and keeps appointments with all recommended providers [facility] Management Arlen Bates, RN Note: Problem: Potential for medical complications and readmission if follow-up appointments are not scheduled Interventions: - Ensure all follow-up appointments are scheduled, all prescribed medications have been received. - Address any barriers for keeping scheduled appointment. - Coordinate with patient/caregiver(s) to ensure patient is able to keep scheduled appointment. - Emphasize importance of keeping scheduled appointments. - Identify and discuss questions for next provider visit. - Follow up with patient after scheduled appointment(s) to review any new orders or changes made to medication regimen. Procedures Procedure Name Priority Date/Time Associated Diagnosis Comments XR SPINE CERVICAL W FLEXION AND EXTENSION 4 VIEWS Routine 04/28/2025 2:27 PM CDT Rheumatoid arthritis with rheumatoid factor of multiple sites without organ or systems involvement (HCC) Neuropathy of left ulnar nerve at wrist XR ELBOW LEFT 3 OR MORE VIEWS Routine 04/28/2025 2:27 PM CDT Rheumatoid arthritis with rheumatoid factor of multiple sites without organ or systems involvement (HCC) Neuropathy of left ulnar nerve at wrist XR HAND LEFT 3 OR MORE VIEWS Routine 04/28/2025 2:27 PM CDT Rheumatoid arthritis with rheumatoid factor of multiple sites without organ or systems involvement (HCC) Neuropathy of left ulnar nerve at wrist CBC WITH AUTO DIFFERENTIAL Routine 04/28/2025 2:04 PM CDT High risk medication use COMPREHENSIVE METABOLIC PANEL Routine 04/28/2025 2:04 PM CDT High risk medication use EGFR Routine 03/07/2025 3:47 PM CDT Renal osteodystrophy Osteoporosis, unspecified osteoporosis type, unspecified pathological fracture presence PHOSPHORUS Routine 03/07/2025 3:47 PM CDT Renal osteodystrophy Osteoporosis, unspecified osteoporosis type, unspecified pathological fracture presence BETA-CROSSLAPS (BETA-CTX) Routine 03/07/2025 3:47 PM CDT Renal osteodystrophy Osteoporosis, unspecified osteoporosis type, unspecified pathological fracture presence PTH Routine 03/07/2025 3:47 PM CDT Renal osteodystrophy Osteoporosis, unspecified osteoporosis type, unspecified pathological fracture presence ALKALINE PHOSPHATASE, BONE SPECIFIC Routine 03/07/2025 3:47 PM CDT Renal osteodystrophy Osteoporosis, unspecified osteoporosis type, unspecified pathological fracture presence VITAMIN D 25 HYDROXY Routine 03/07/2025 3:47 PM CDT Renal osteodystrophy Osteoporosis, unspecified osteoporosis type, unspecified pathological fracture presence COMPREHENSIVE METABOLIC PANEL Routine 03/07/2025 3:47 PM CDT Renal osteodystrophy Osteoporosis, unspecified osteoporosis type, unspecified pathological fracture presence URIC ACID Routine 03/07/2025 3:47 PM CDT Osteoporosis with current pathological fracture, unspecified osteoporosis type, sequela Renal osteodystrophy Osteoporosis, unspecified osteoporosis type, unspecified pathological fracture presence EGFR Routine 02/08/2025 11:41 AM CDT Osteoporosis, unspecified osteoporosis type, unspecified pathological fracture presence PHOSPHORUS Routine 02/08/2025 11:41 AM CDT Osteoporosis, unspecified osteoporosis type, unspecified pathological fracture presence PTH Routine 02/08/2025 11:41 AM CDT Osteoporosis, unspecified osteoporosis type, unspecified pathological fracture presence COMPREHENSIVE METABOLIC PANEL Routine 02/08/2025 11:41 AM CDT Osteoporosis, unspecified osteoporosis type, unspecified pathological fracture presence CANCER ANTIGEN 19-9 Routine 02/08/2025 1 1:41 AM CDT Pancreas cyst SCREENING MAMMOGRAM BILATERAL W RAVIN Schedule Routine, Read Routine (OP Routine) 05/22/2024 1:17 PM CDT Screening mammogram, encounter for COLONOSCOPY REPORT 06/08/2016 from Last 3 Months or Most Recently Relevant to Health Maintenance Results * XR Spine Cervical W Flexion And Extension 4 or 5 Views (04/28/2025 2:27 PM CDT) Anatomical Region Laterality Modality Spine N/A Computed Radiogr aphy 04/28/2025 3:43 PM CDT Impressions 04/28/2025 4:48 PM CDT 1. 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 2. 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 3. Multilevel cervical degenerative disc disease, most pronounced and moderate at C5-C6 and C6-C7. Multilevel facet and uncovertebral arthropathy, with multilevel osseous neural foraminal stenosis on the left. Dictated by: Jean Lucia MD The radiology attending physician has personally reviewed this study, and had reviewed and/or edited this written report and agrees with it. Electronically signed by: Zander Khan M.D. Narrative 04/28/2025 4:48 PM CDT EXAMINATION: XR HAND LEFT 3 OR MORE VIEWS, XR ELBOW LEFT 3 OR MORE VIEWS, XR SPINE CERVICAL W FLEXION AND EXTENSION 4 OR 5 VIEWS HISTORY: Rheumatoid arthritis FINDINGS: Left hand: 3 radiographs of the left hand are compared to 02/08/2023. 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 There is remodeling and erosion of the lunate and distal radius, with ulnar positive variance, similar to prior. There is moderate base of thumb osteoarthritis mild polyarticular distal interphalangeal osteoarthritis. No fracture or dislocation. Left elbow: 3 radiographs of the left elbow are submitted. No comparison available. Normal alignment. No acute fracture. No effusion. There is mild tricompartmental osteoarthritis. No osseous erosions or periostitis. Cervical spine: 5 radiographs of the cervical spine are submitted. Comparison is made to CT cervical spine 11/01/2023. Normal sagittal alignment. No cervical compression fracture. No prevertebral soft tissue swelling. There is multilevel degenerative disc disease, most pronounced and moderate at C5-C6 and C6-C7. There is multilevel facet and uncovertebral arthropathy. No high-grade osseous neuroforaminal stenosis on the right. There is multilevel osseous foraminal stenosis on the left, most pronounced at C3-C4. Procedure Note Zander Khan MD PhD - 04/28/2025 EXAMINATION: XR HAND LEFT 3 OR MORE VIEWS, XR ELBOW LEFT 3 OR MORE VIEWS, XR SPINE CERVICAL W FLEXION AND EXTENSION 4 OR 5 VIEWS HISTORY: Rheumatoid arthritis FINDINGS: Left hand: 3 radiographs of the left hand are compared to 02/08/2023. 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 There is remodeling and erosion of the lunate and distal radius, with ulnar positive variance, similar to prior. There is moderate base of thumb osteoarthritis mild polyarticular distal interphalangeal osteoarthritis. No fracture or dislocation. Left elbow: 3 radiographs of the left elbow are submitted. No comparison available. Normal alignment. No acute fracture. No effusion. There is mild tricompartmental osteoarthritis. No osseous erosions or periostitis. Cervical spine: 5 radiographs of the cervical spine are submitted. Comparison is made to CT cervical spine 11/01/2023. Normal sagittal alignment. No cervical compression fracture. No prevertebral soft tissue swelling. There is multilevel degenerative disc disease, most pronounced and moderate at C5-C6 and C6-C7. There is multilevel facet and uncovertebral arthropathy. No high-grade osseous neuroforaminal stenosis on the right. There is multilevel osseous foraminal stenosis on the left, most pronounced at C3-C4. IMPRESSION: 1. 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 2. 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 3. Multilevel cervical degenerative disc disease, most pronounced and moderate at C5-C6 and C6-C7. Multilevel facet and uncovertebral arthropathy, with multilevel osseous neural foraminal stenosis on the left. Dictated by: Jean Lucia MD The radiology attending physician has personally reviewed this study, and had reviewed and/or edited this written report and agrees with it. Electronically signed by: Zander Khan M.D. us Erin Carolyn Jamil MD IMG XR PROCEDURES Fin al Result * XR Hand Left 3 or More Views (04/28/2025 2:27 PM CDT) Anatomical Region Laterality Modality Upper Extremities, Hand Left Computed Radiography 04/28/2025 3:43 PM CDT Impressions 04/28/2025 4:48 PM CDT 1. 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 2. 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 3. Multilevel cervical degenerative disc disease, most pronounced and moderate at C5-C6 and C6-C7. Multilevel facet and uncovertebral arthropathy, with multilevel osseous neural foraminal stenosis on the left. Dictated by: Jean Lucia MD The radiology attending physician has personally reviewed this study, and had reviewed and/or edited this written report and agrees with it. Electronically signed by: Zander Khan M.D. Narrative 04/28/2025 4:48 PM CDT EXAMINATION: XR HAND LEFT 3 OR MORE VIEWS, XR ELBOW LEFT 3 OR MORE VIEWS, XR SPINE CERVICAL W FLEXION AND EXTENSION 4 OR 5 VIEWS HISTORY: Rheumatoid arthritis FINDINGS: Left hand: 3 radiographs of the left hand are compared to 02/08/2023. 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 There is remodeling and erosion of the lunate and distal radius, with ulnar positive variance, similar to prior. There is moderate base of thumb osteoarthritis mild polyarticular distal interphalangeal osteoarthritis. No fracture or dislocation. Left elbow: 3 radiographs of the left elbow are submitted. No comparison available. Normal alignment. No acute fracture. No effusion. There is mild tricompartmental osteoarthritis. No osseous erosions or periostitis. Cervical spine: 5 radiographs of the cervical spine are submitted. Comparison is made to CT cervical spine 11/01/2023. Normal sagittal alignment. No cervical compression fracture. No prevertebral soft tissue swelling. There is multilevel degenerative disc disease, most pronounced and moderate at C5-C6 and C6-C7. There is multilevel facet and uncovertebral arthropathy. No high-grade osseous neuroforaminal stenosis on the right. There is multilevel osseous foraminal stenosis on the left, most pronounced at C3-C4. Procedure Note Zander Khan MD PhD - 04/28/2025 EXAMINATION: XR HAND LEFT 3 OR MORE VIEWS, XR ELBOW LEFT 3 OR MORE VIEWS, XR SPINE CERVICAL W FLEXION AND EXTENSION 4 OR 5 VIEWS HISTORY: Rheumatoid arthritis FINDINGS: Left hand: 3 radiographs of the left hand are compared to 02/08/2023. 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 There is remodeling and erosion of the lunate and distal radius, with ulnar positive variance, similar to prior. There is moderate base of thumb osteoarthritis mild polyarticular distal interphalangeal osteoarthritis. No fracture or dislocation. Left elbow: 3 radiographs of the left elbow are submitted. No comparison available. Normal alignment. No acute fracture. No effusion. There is mild tricompartmental osteoarthritis. No osseous erosions or periostitis. Cervical spine: 5 radiographs of the cervical spine are submitted. Comparison is made to CT cervical spine 11/01/2023. Normal sagittal alignment. No cervical compression fracture. No prevertebral soft tissue swelling. There is multilevel degenerative disc disease, most pronounced and moderate at C5-C6 and C6-C7. There is multilevel facet and uncovertebral arthropathy. No high-grade osseous neuroforaminal stenosis on the right. There is multilevel osseous foraminal stenosis on the left, most pronounced at C3-C4. IMPRESSION: 1. 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 2. 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 3. Multilevel cervical degenerative disc disease, most pronounced and moderate at C5-C6 and C6-C7. Multilevel facet and uncovertebral arthropathy, with multilevel osseous neural foraminal stenosis on the left. Dictated by: Jean Lucia MD The radiology attending physician has personally reviewed this study, and had reviewed and/or edited this written report and agrees with it. Electronically signed by: Zander Khan M.D. us Erin Jamil MD IMG XR PROCEDURES Fin al Result * XR Elbow Left 3 or More Views (04/28/2025 2:27 PM CDT) Anatomical Region Laterality Modality Upper Extremities, Elbow Left Compute d Radiography 04/28/2025 3:43 PM CDT Impressions 04/28/2025 4:48 PM CDT 1. 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 2. 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 3. Multilevel cervical degenerative disc disease, most pronounced and moderate at C5-C6 and C6-C7. Multilevel facet and uncovertebral arthropathy, with multilevel osseous neural foraminal stenosis on the left. Dictated by: Jean Lucia MD The radiology attending physician has personally reviewed this study, and had reviewed and/or edited this written report and agrees with it. Electronically signed by: Zander Khan M.D. Narrative 04/28/2025 4:48 PM CDT EXAMINATION: XR HAND LEFT 3 OR MORE VIEWS, XR ELBOW LEFT 3 OR MORE VIEWS, XR SPINE CERVICAL W FLEXION AND EXTENSION 4 OR 5 VIEWS HISTORY: Rheumatoid arthritis FINDINGS: Left hand: 3 radiographs of the left hand are compared to 02/08/2023. 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 There is remodeling and erosion of the lunate and distal radius, with ulnar positive variance, similar to prior. There is moderate base of thumb osteoarthritis mild polyarticular distal interphalangeal osteoarthritis. No fracture or dislocation. Left elbow: 3 radiographs of the left elbow are submitted. No comparison available. Normal alignment. No acute fracture. No effusion. There is mild tricompartmental osteoarthritis. No osseous erosions or periostitis. Cervical spine: 5 radiographs of the cervical spine are submitted. Comparison is made to CT cervical spine 11/01/2023. Normal sagittal alignment. No cervical compression fracture. No prevertebral soft tissue swelling. There is multilevel degenerative disc disease, most pronounced and moderate at C5-C6 and C6-C7. There is multilevel facet and uncovertebral arthropathy. No high-grade osseous neuroforaminal stenosis on the right. There is multilevel osseous foraminal stenosis on the left, most pronounced at C3-C4. Procedure Note Zander Khan MD PhD - 04/28/2025 EXAMINATION: XR HAND LEFT 3 OR MORE VIEWS, XR ELBOW LEFT 3 OR MORE VIEWS, XR SPINE CERVICAL W FLEXION AND EXTENSION 4 OR 5 VIEWS HISTORY: Rheumatoid arthritis FINDINGS: Left hand: 3 radiographs of the left hand are compared to 02/08/2023. 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 There is remodeling and erosion of the lunate and distal radius, with ulnar positive variance, similar to prior. There is moderate base of thumb osteoarthritis mild polyarticular distal interphalangeal osteoarthritis. No fracture or dislocation. Left elbow: 3 radiographs of the left elbow are submitted. No comparison available. Normal alignment. No acute fracture. No effusion. There is mild tricompartmental osteoarthritis. No osseous erosions or periostitis. Cervical spine: 5 radiographs of the cervical spine are submitted. Comparison is made to CT cervical spine 11/01/2023. Normal sagittal alignment. No cervical compression fracture. No prevertebral soft tissue swelling. There is multilevel degenerative disc disease, most pronounced and moderate at C5-C6 and C6-C7. There is multilevel facet and uncovertebral arthropathy. No high-grade osseous neuroforaminal stenosis on the right. There is multilevel osseous foraminal stenosis on the left, most pronounced at C3-C4. IMPRESSION: 1. 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 2. 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 3. Multilevel cervical degenerative disc disease, most pronounced and moderate at C5-C6 and C6-C7. Multilevel facet and uncovertebral arthropathy, with multilevel osseous neural foraminal stenosis on the left. Dictated by: Jean Lucia MD The radiology attending physician has personally reviewed this study, and had reviewed and/or edited this written report and agrees with it. Electronically signed by: Zander Khan M.D. Erin Jamil MD IMG XR PROCEDURES Fin al Result * (ABNORMAL) CBC with auto differential (04/28/2025 2:04 PM CDT) White Blood Count 13.8(H) 3.6 - 11.2 K/uL [facility] RBC 3.62(L) 3.63 - 4.92 M/uL [facility] Hemoglobin 12.6 11.9 - 15.5 g/dL [facility] Hematocrit 38.1 36.1 - 44.3 % [facility] MCV 105.3(H) 80.0 - 97.6 fL [facility] MCH 34.7(H) 26.7 - 33.7 pg [facility] MCHC 32.9 32.7 - 35.5 g/dL [facility] RBC Dist Width 15.8 12.3 - 17.0 % [facility] Platelet Count 281 140 - 440 K/uL [facility] MPV 7.1 6.8 - 10.4 fL [facility] Neutrophils % 62.6 38.7 - 74.5 % [facility] Lymphocyte % 27.4 20.0 - 54.3 % [facility] Monocytes % 8.4 4.3 - 13.5 % [facility] Eosinophils % 1.3 0.0 - 6.0 % [facility] Basophil % 0.3 0.0 - 3.0 % [facility] Absolute Neutrophil 8.6(H) 1.8 - 6.6 K/uL [facility] Absolute Lymphocyte 3.8(H) 0.8 - 3.3 K/uL [facility] Comment:Repeated and Verifie d Absolute Monocyte 1.2 0.2 - 1.2 K/uL [facility] Absolute Eosinophil 0.2 0.0 - 0.5 K/uL [facility] Absolute Basophil 0.0 0.0 - 0.2 K/uL [facility] Nucleated RBC % 0.1 0.0 - 0.4 /100 WBC [facility] Blood 04/28/2025 2:04 PM CDT 04/28/2025 3:13 PM CDT us Erin Jamil MD LAB BLOOD ORDERABLES Final Result [facility] * (ABNORMAL) Comprehensive metabolic panel (04/28/2025 2:04 PM CDT) Total Protein 7.0 6.1 - 8.4 g/dL [facility] Albumin 3.9 3.5 - 5.2 g/dL [facility] Calcium 9.8 8.6 - 10.3 mg/dL [facility] BUN 35(H) 7 - 23 mg/dL [facility] Total Bilirubin 0.62 0.20 - 1.40 mg/dL [facility] Alk Phos, Total 85 35 - 129 IU/L [facility] AST (SGOT) 12 11 - 47 IU/L [facility] ALT (SGPT) 11 6 - 53 IU/L [facility] Creatinine 1.77(H) 0.60 - 1.10 mg/dL [facility] Sodium 136 135 - 145 mmol/L [facility] Potassium 4.9 3.3 - 5.1 mmol/L [facility] Chloride 101 95 - 107 mmol/L [facility] CO2 Content 22 21 - 29 mmol/L [facility] Glucose 102(H) 64 - 99 mg/dL [facility] Comment: NONFASTING GLUCOSE RANGE = 64-199 mg/dL FASTING GLUCOSE 64 - 99 = NORMAL FASTING GLUCOSE 100 - 125 = IMPAIRED FASTING GLUCOSE FASTING GLUCOSE >=126 = PROVISIONAL DIAGNOSIS OF DIABETES eGFR 31.7(L) >60.0 mL/min/1.7 3 m2 [facility] Blood 04/28/2025 2:04 PM CDT 04/28/2025 3:13 PM CDT us Erin Jamil MD LAB BLOOD ORDERABLES Final Result [facility] * (ABNORMAL) eGFR (03/07/2025 3:47 PM CDT) eGFR 28(L) >=60 mL/min/1. 73 m2 Comment: Interpretive Data Reference Interval Normal >/= 90 mL/min/1.73m2 Mildly decreased* 60 - 89 mL/min/1.73m2 Mildly to moderately decreased 45 - 59 mL/min/1.73m2 Moderately to severely decreased 30 - 44 mL/min/1.73m2 Severely decreased 15 - 29 mL/min/1.73m2 Kidney Failure < 15 mL/min/1.73m2 *Relative to young adult level Estimated glomerular filtration rate is determined by the 2020 CKD-EPI equation recommended by the National [employer] (A Unifying Approach to GFR Estimation: Recommendations of the NKF-ASK Task Force on Reassessing the Inclusion of Race in Diagnosing Kidney Disease, JASN 2020). The CKD-EPI equation should not be used for patients with unstable renal function and has not been validated in children and those over 70. Current interpretive data was last reviewed 2021. Blood 03/07/2025 3:47 PM CDT 03/07/2025 4:26 PM CDT Mahesh Neal MD LAB BLOOD ORDERABLES Fi nal Result Performing Organization Address [facility] de Phone Number [facility] [place] [address] * Beta-CrossLaps (Beta-CTx) (03/07/2025 3:47 PM CDT) Beta-CTx 621 pg/mL Comment: Interpretive Data Female: Premenopausal: 136 - 689 pg/mL Postmenopausal: 177 - 1015 pg/mL Male: 30 - 50 years: 131 - 670 pg/mL 51 - 70 years: 171 - 1060 pg/mL > 70 years: 152 - 858 pg/mL Current interpretive data was last revised on 2024. Blood 03/07/2025 3:47 PM CDT 03/07/2025 4:21 PM CDT Mahesh Neal MD LAB BLOOD ORDERABLES Fi nal Result Performing Organization Address City/[facility] Co de Phone Number [facility] [place] [address] * Alkaline phosphatase, bone specific (03/07/2025 3:47 PM CDT) Pathologist [facility] Alk phos, bone 16 mcg/L [facility] Comment: REFERENCE VALUE <=14 (Premenopausal) <=22 (Postmenopausal) ADDITIONAL INFORMATION Liver-derived alkaline phosphatase (ALP) increases apparent measured bone alkaline phosphatase (BAP) in this assay by 2.5 mcg/L to 5.8 mcg/L for every 100 U/L of liver ALP. Accordingly, serum specimens with significant elevations of liver ALP activity may yield artificially elevated results in the BAP assay. Test Performed by: [place] [id number] Coordinating Producer: Avery Osuna Ph.D.; CLIA# [id number] Blood 03/07/2025 3:47 PM CDT 03/07/2025 4:20 PM CDT Mahesh Neal MD LAB BLOOD ORDERABLES Fi nal Result Performing Organization Address [facility] de Phone Number [facility] [employer] [address] [facility] * Vitamin D 25 hydroxy (03/07/2025 3:47 PM CDT) [facility] Vitamin D 25-OH 44 30 - 80 ng/mL Blood 03/07/2025 3:47 PM CDT 03/07/2025 4:20 PM CDT Mahesh Neal MD LAB BLOOD ORDERABLES Fi nal Result Performing Organization Address [facility] Co de Phone Number [facility] [place] [address] * Uric acid (03/07/2025 3:47 PM CDT) Uric acid 6.0 2.5 - 7.0 mg/dL Blood 03/07/2025 3:47 PM CDT 03/07/2025 4:20 PM CDT Result [facility] Mahesh Neal MD LAB BLOOD ORDERABLES Fi nal Result Performing Organization Address City/[facility] Co de Phone Number [facility] [place] [address] * Phosphorus (03/07/2025 3:47 PM CDT) Pathologist [facility] Phosphorus, pl 3.9 2.3 - 4.5 mg/dL Blood 03/07/2025 3:47 PM CDT 03/07/2025 4:20 PM CDT Result [facility] Mahesh Neal MD LAB BLOOD ORDERABLES Fi nal Result Performing Organization Address [facility] Co de Phone Number [facility] [place] [address] * (ABNORMAL) PTH (03/07/2025 3:47 PM CDT) [facility] PTH 189(H) 15 - 65 pg/mL Blood 03/07/2025 3:47 PM CDT 03/07/2025 4:20 PM CDT Result [facility] Mahesh Neal MD LAB BLOOD ORDERABLES Fi nal Result Performing Organization Address [facility] de Phone Number [facility] [place] [address] * (ABNORMAL) Comprehensive metabolic panel (03/07/2025 3:47 PM CDT) [facility] Sodium 142 135 - 145 mmol/L Potassium, pl 5.5(H) 3.3 - 4.9 mmol/L [facility] Chloride 108 97 - 110 mmol/L [facility] CO2 26 22 - 32 mmol/L [facility] Anion gap 8 2 - 15 mmol/L [facility] BUN 44(H) 6 - 25 mg/dL [facility] Creatinine 1.97(H) 0.60 - 1.10 mg/dL [facility] Glucose 120 70 - 199 mg/dL [facility] Comment: Interpretive Data Fasting glucose >/= 126 mg/dl is diagnostic for diabetes. Fasting is defined as no caloric intake for at least 8 hours. Fasting glucose between 100 mg/dl to 125 mg/dl is diagnostic of prediabetes. In a patient with classic symptoms of hyperglycemia or hyperglycemic crisis, a random glucose >/= 200 mg/dl is diagnostic for diabetes. In the absence of unequivocal hyperglycemia, results should be confirmed by repeat testing. The classification and Diagnosis of Diabetes Diabetes Care 202; 46: S19-S40. Current interpretive data was last revised 2022. Calcium 9.2 8.5 - 10.3 mg/dL [facility] Bilirubin, total 0.3 0.1 - 1.2 mg/dL [facility] Protein, pl 6.8 6.5 - 8.5 g/dL [facility] Albumin 3.8 3.5 - 5.0 g/dL [facility] Alk phos 91 40 - 130 Units/L [facility] ALT 14 7 - 45 Units/L [facility] AST 14 10 - 45 Units/L [facility] Blood 03/07/2025 3:47 PM CDT 03/07/2025 4:20 PM CDT Mahesh Neal MD LAB BLOOD ORDERABLES Fi nal Result [facility] [place] [address] * (ABNORMAL) eGFR (02/08/2025 11:41 AM CDT) Pathologist [facility] eGFR 28(L) >=60 mL/min/1. 73 m2 Comment: Interpretive Data Reference Interval Normal >/= 90 mL/min/1.73m2 Mildly decreased* 60 - 89 mL/min/1.73m2 Mildly to moderately decreased 45 - 59 mL/min/1.73m2 Moderately to severely decreased 30 - 44 mL/min/1.73m2 Severely decreased 15 - 29 mL/min/1.73m2 Kidney Failure < 15 mL/min/1.73m2 *Relative to young adult level Estimated glomerular filtration rate is determined by the 2020 CKD-EPI equation recommended by the National Kidney [employer] (A Unifying Approach to GFR Estimation: Recommendations of the NKF-ASK Task Force on Reassessing the Inclusion of Race in Diagnosing Kidney Disease, JASN 2020). The CKD-EPI equation should not be used for patients with unstable renal function and has not been validated in children and those over 70. Current interpretive data was last reviewed 2021. Blood 02/08/2025 11:4 1 AM CDT 02/08/2025 11:56 AM CDT Dona Sawyer MD LAB BLOOD ORDERABLES Final Re sult Performing Organization Address City/[facility] Co de Phone Number [facility] Department [place] [address] * Cancer antigen 19-9 (02/08/2025 11:41 AM CDT) Pathologist [facility] CA 19-9 ag 25.7 <=35.0 units/mL Comment: Interpretive Data The Chelsie CA 19-9 assay procedure was used. Results from different manufacturers or methods may not be comparable. Serial testing should be performed using the same method. Blood 02/08/2025 11:4 1 AM CDT 02/08/2025 11:49 AM CDT us Eden RAZO LAB BLOOD ORDERABLES Elvira l Result Performing Organization Address City/[facility]/ZIP Co de Phone Number [facility] Department [place] [address] * Phosphorus (02/08/2025 11:41 AM CDT) Phosphorus, pl 3.3 2.3 - 4.5 mg/dL Blood 02/08/2025 11:4 1 AM CDT 02/08/2025 11:49 AM CDT Dona Sawyer MD LAB BLOOD ORDERABLES Final Re sult Performing Organization Address [facility] Co de Phone Number [facility] Department [place] [address] * (ABNORMAL) PTH (02/08/2025 11:41 AM CDT) Pathologist [facility] PTH 102(H) 15 - 65 pg/mL Blood 02/08/2025 11:4 1 AM CDT 02/08/2025 11:49 AM CDT Dona Sawyer MD LAB BLOOD ORDERABLES Final Re sult Performing Organization Address [facility] de Phone Number [facility] [place] [address] * (ABNORMAL) Comprehensive metabolic panel (02/08/2025 11:41 AM CDT) [facility] Sodium 141 135 - 145 mmol/L Potassium, pl 4.7 3.3 - 4.9 mmol/L [facility] Chloride 106 97 - 110 mmol/L [facility] CO2 27 22 - 32 mmol/L [facility] Anion gap 8 2 - 15 mmol/L [facility] BUN 29(H) 6 - 25 mg/dL [facility] Creatinine 1.95(H) 0.60 - 1.10 mg/dL [facility] Glucose 150 70 - 199 mg/dL [facility] Comment: Interpretive Data Fasting glucose >/= 126 mg/dl is diagnostic for diabetes. Fasting is defined as no caloric intake for at least 8 hours. Fasting glucose between 100 mg/dl to 125 mg/dl is diagnostic of prediabetes. In a patient with classic symptoms of hyperglycemia or hyperglycemic crisis, a random glucose >/= 200 mg/dl is diagnostic for diabetes. In the absence of unequivocal hyperglycemia, results should be confirmed by repeat testing. The classification and Diagnosis of Diabetes Diabetes Care 2021; 46: S19-S40. Current interpretive data was last revised 2022. Calcium 9.5 8.5 - 10.3 mg/dL [facility] Bilirubin, total 0.4 0.1 - 1.2 mg/dL [facility] Protein, pl 6.6 6.5 - 8.5 g/dL [facility] Albumin 3.7 3.5 - 5.0 g/dL [facility] Alk phos 100 40 - 130 Units/L [facility] ALT 13 7 - 45 Units/L [facility] AST 14 10 - 45 Units/L [facility] Blood 02/08/2025 11:4 1 AM CDT 02/08/2025 11:49 AM CDT us Dona Sawyer MD LAB BLOOD ORDERABLES Final Re sult [facility] Department [place] [address] * Screening Mammogram Bilateral W Ravin (05/22/2024 1:17 PM CDT) Anatomical Region Laterality Modality Breast Bilateral Mammography Narrative 05/23/2024 4:54 PM CDT Mammogram Technique: Bilateral Digital Breast Tomosynthesis, Bilateral C-view 2D Screening mammogram. Views obtained: bilateral craniocaudal and bilateral mediolateral oblique. Computer Aided Detection was performed. Mammogram Findings: The present examination has been compared to prior imaging studies performed at [facility] on 04/29/2021, 05/03/2022 and 05/19/2023. The breasts are almost entirely fatty. There is no suspicious abnormality in either breast. Impression: There is no mammographic evidence of malignancy. Annual screening mammography is recommended. OVERALL FINAL ASSESSMENT: BI-RADS CATEGORY 1: Negative. Procedure Note Connie Cohen MD - 05/23/2024 Mammogram Technique: Bilateral Digital Breast Tomosynthesis, Bilateral C-view 2D Screening mammogram. Views obtained: bilateral craniocaudal and bilateral mediolateral oblique. Computer Aided Detection was performed. Mammogram Findings: The present examination has been compared to prior imaging studies performed at [facility] on 04/29/2021, 05/03/2022 and 05/19/2023. The breasts are almost entirely fatty. There is no suspicious abnormality in either breast. Impression: There is no mammographic evidence of malignancy. Annual screening mammography is recommended. OVERALL FINAL ASSESSMENT: BI-RADS CATEGORY 1: Negative. us Self Screening Mammogram IMG MAMMO PROCEDURES Fi nal Result * COLONOSCOPY REPORT (06/08/2016) Anatomical Region Laterality Modality Other Narrative 06/08/2016 Ordered by an unspecified provider. [facility] Provider MD AGUILERA PROCEDURE ORDERABLES F inal Result from Last 3 Months or Most Recently Relevant to Health Maintenance Insurance [facility] Advance Directives For more information, please contact: [phone] * Full Code (Latest Code Status on File) Date Activated Date Inactivated Comments 11/13/2023 7:39 PM 11/16/2023 4:56 PM * Full Code Date Activated Date Inactivated Comments 10/20/2022 2:02 PM 10/20/2022 8:58 PM Care Teams Glass Silverer Relationship Specialty Start Date End Date Jose Dahl MD [address] [place] [address] PCP - General Internal Medicine 11/29/22 Sam Gonsalez MD [address] [address] Referring Physician Cardiology 11/16/23
--- OUTSIDE RECORDS SUMMARY | 2025-05-08 11:35 | XMS_ITS | Clinical Summary ---
Author Organization [facility] Address [address] [place] [address] Care Team Providers Care Veterinary Surgeon Name Role Phone Jose Dahl MD Primary Care Provider [phone] Sam Gonsalez MD Unavailable [phone] Allergies No known active allergies Medications calcium [...] total) under the skin daily 1.56 mL 11 12/10/19 25 Active pen needle, diabetic (BD Ultra-Fine Mini Pen Needle) 31 gauge x 01/19 needleIndication s:Age-related osteoporosis without current pathological fracture Use one needle daily with pen 100 each 11 12/10/19 25 Active methotrexate 2.5 mg tabletIndication [...] 11/13/2023 Assessment & Plan (11/15/2023 12:23 PM HOUSEHOLD APPLIANCE ASSEMBLER): Presents with several days of nausea, vomiting [...] intake Assessment & Plan (11/14/2023 4:16 PM HOUSEHOLD APPLIANCE ASSEMBLER): Presents with several days of nausea, vomiting [...] 11/12/2023 Assessment & Plan (11/15/2023 12:27 PM HOUSEHOLD APPLIANCE ASSEMBLER): -elevated troponin to 3786 in ED with no acute ischemic changes on EKG -previous [facility] 10/20/22 with 40% mid LAD, 75% ostial small 1st diagonal, 50% mid RCA -elevated troponin likely reflects increased demand in setting of infection -treat infection as outlined above -tele -TTE with EF 48% (decreased from 55-60% in 10/2022) -plan for repeat ischemic eval as an outpatient once infection and EUNICE resolved Assessment & Plan (11/14/2023 4:17 PM HOUSEHOLD APPLIANCE ASSEMBLER): -elevated troponin to 3786 in ED with no acute ischemic changes on EKG -previous [facility] 10/20/22 with 40% mid LAD, 75% ostial small 1st diagonal, 50% mid RCA -elevated troponin likely reflects increased demand in setting of infection -treat infection as outlined above -TTE -tele Chronic coronary artery disease 10/11/2023 BMI 40.0-44.9, adult 10/11/2023 Osteoarthritis of left knee, unspecified osteoarthritis type 09/21/2023 Assessment & Plan (09/22/2023 4:57 PM HOUSEHOLD APPLIANCE ASSEMBLER): Patient with history of bilateral osteoarthritis now [...] adapt. Assessment & Plan (11/15/2023 12:24 PM HOUSEHOLD APPLIANCE ASSEMBLER): -continue home CPAP Assessment & Plan (11/13/2023 6:43 PM HOUSEHOLD APPLIANCE ASSEMBLER): -continue home CPAP Assessment & Plan (09/21/2023 4:09 PM HOUSEHOLD APPLIANCE ASSEMBLER): CPAP at 8 Assessment & Plan (08/31/2023 [...] q8h Assessment & Plan (09/25/2018 9:39 AM HOUSEHOLD APPLIANCE ASSEMBLER): - Xray with multilevel degenerative disc disease [...] D Assessment & Plan (09/24/2018 5:26 PM HOUSEHOLD APPLIANCE ASSEMBLER): According to DEXA in 04/2014. Ca and [...] dose. Assessment & Plan (11/15/2023 12:32 PM HOUSEHOLD APPLIANCE ASSEMBLER): Baseline Cr 1.6-2.0 -Cr 2.37, EUNICE likely secondary to infection -monitor closely while treating pyelonephritis -renally dose meds, minimize nephrotoxins -CT with ill-defined masslike lesion left kidney upper pole. Recommend further evaluation with renal protocol MRI without and with intravenous contrast - will consider MRI as an outpatient once EUNICE resolves. Assessment & Plan (11/13/2023 6:51 PM HOUSEHOLD APPLIANCE ASSEMBLER): Baseline Cr 1.6-2.0 -currently at baseline on admission -monitor closely while treating pyelonephritis -renally dose meds, minimize nephrotoxins Assessment & Plan (09/22/2023 5:01 PM HOUSEHOLD APPLIANCE ASSEMBLER): Patient with CKD stage 3. Creatinine slightly [...] Plan (04/23/2019 8:46 AM CDT): - F/w [facility] nephrology - Secondary to hypertensive nephropathy and chronic NSAID use - Serum stable at Cr 1.4 with a GFR between 40-60 - Avoid nephrotoxins, cont to f/u with nephrology Assessment & Plan (09/25/2018 3:27 PM HOUSEHOLD APPLIANCE ASSEMBLER): F/w [facility] nephrology - Secondary to hypertensive nephropathy and chronic NSAID use - Serum Cr 1.4, recheck BMP in two weeks - Avoid nephrotoxins, cont to f/u with nephrology Hypertension 02/05/2011 Assessment & Plan (11/15/2023 12:28 PM HOUSEHOLD APPLIANCE ASSEMBLER): -hold home lisinopril and amlodipine for now while treating infection -monitor closely Assessment & Plan (11/14/2023 4:18 PM HOUSEHOLD APPLIANCE ASSEMBLER): -hold home lisinopril and amlodipine for now while treating infection -monitor closely Assessment & Plan (09/22/2023 4:59 PM HOUSEHOLD APPLIANCE ASSEMBLER): Continue amlodipine and Lisinopril - held lisinopril [...] activities Assessment & Plan (09/25/2018 3:26 PM HOUSEHOLD APPLIANCE ASSEMBLER): - BP still elevated to 162/84 - [...] 07/13/2006 Assessment & Plan (11/15/2023 12:19 PM HOUSEHOLD APPLIANCE ASSEMBLER): History of seronegative RA -last dose of methotrexate 11/07/23, will hold while treating infection Assessment & Plan (11/14/2023 4:07 PM HOUSEHOLD APPLIANCE ASSEMBLER): History of seronegative RA -last dose of methotrexate 11/07/23, will hold while treating infection Assessment & Plan (09/21/2023 4:09 PM HOUSEHOLD APPLIANCE ASSEMBLER): Seronegative RA followed by rheumatology MTX 15mg q week on Tuesdays and folic acid Assessment & Plan (05/29/2020 9:27 AM CDT): Cont MTX and Folic Acid per rheum Assessment & Plan (08/29/2019 9:35 AM CDT): - Follows with [facility] rheumatology - Symptoms manageable with current MTX regimen w/ no recent episodes of a flare - No boutoniere or swan neck deformity and no synovitis - No signs or symptoms of RA complication and labs are wnl - Cont to follow up with rheumatology Assessment & Plan (04/23/2019 7:55 AM CDT): - Follows with [facility] rheumatology - Symptoms manageable with current MTX regimen w/ no recent episodes of a flare - No boutoniere or swan neck deformity and no synovitis - No signs or symptoms of RA complication and labs are wnl - Cont to follow up with rheumatology Assessment & Plan (09/24/2018 5:24 PM HOUSEHOLD APPLIANCE ASSEMBLER): - Follows with [facility] rheumatology - Symptoms manageable with current MTX regimen w/ no recent episodes of a flare - No boutoniere or swan neck deformity and no synovitis - No signs or symptoms of RA complication and labs are wnl - Cont to follow up with rheumatology Resolved Problems Problem Noted Date Diagnosed Date Resolved Date Snoring 11/29/2022 04/27/2023 Assessment & Plan (11/29/2022 11:04 AM HOUSEHOLD APPLIANCE ASSEMBLER): I have ordered a nocturnal polysomnogram split night protocol if necessary, no MSLT. Hypersomnia 11/29/2022 04/27/2023 Bursitis of right shoulder 05/29/2020 1 12/24/2019 Assessment & Plan (05/29/2020 9:48 AM CDT): Exam and symptoms consistent with shoulder bursitis and impingement of rotator cuff. We discussed the benefits of ongoing PM&R visits along with at home exercises and stretches. She was provided a handout from Allison Bashir of [facility]. She will trial APAP PRN and was [...] 09/25/18 Assessment & Plan (09/25/2018 3:29 PM HOUSEHOLD APPLIANCE ASSEMBLER): Colonoscopy: 2016 ( small and large mouth [...] prn Assessment & Plan (09/25/2018 9:49 AM HOUSEHOLD APPLIANCE ASSEMBLER): Xray with moderate patellofemoral compartment predominant tricompartmental right knee osteoarthritis. - Tylenol 1 g q8h prn Encounters Date Type Department Care Team Description 04/29/2025 Results Follow-Up [facility] Rheumatology [address] [place] [address] [address] [place] [address] Erin Jamil MD Comprehensive metabolic panel, CBC with auto differential 04/28/2025 2:15 PM CDT - 04/28/2025 11:59 PM CDT Hospital Encounter [facility] [address] [place] [address] Erin Jamil MD Discharge Disposition: Discharge to home or self care 04/28/2025 2:00 PM CDT Lab [facility] Endocrinology Metabolism and Lipid [address] [facility] 5th [place] [address] [place] [address] High risk medication use 04/28/2025 1:30 PM CDT Office Visit [facility] Rheumatology [address] [facility] 5th [place] [address] [place] [address] Erin Jamil MD Rheumatoid arthritis with rheumatoid [...] pain syndrome 03/07/2025 7:10 PM CDT Lab [facility] ([facility]) [address] [place] [id number] Osteoporosis with current pathological fracture, unspecified osteoporosis type, sequela; Renal osteodystrophy; Osteoporosis, unspecified osteoporosis type, unspecified pathological fracture presence 03/07/2025 2:20 PM CDT Office Visit [address] [place] [address] [place] [address] Mahesh Neal MD Osteoporosis with current pathological fracture, unspecified osteoporosis type, sequela (Primary Dx); Renal osteodystrophy; Osteoporosis, unspecified osteoporosis type, unspecified pathological fracture presence; Chronic renal impairment, stage 3b (HCC); Chronic kidney disease-mineral and bone disorder (CKD-MBD) 03/07/[address] [place] [address] Mahesh Neal MD 03/05/[address] [place] [address] Nidia Spencer DNP 02/18/2025 11:00 AM CDT Office Visit [facility] Surgery [address] [place] [address] [address] [place] [address] Delma Murray MD Lesion of pancreas 02/08/2025 11:40 AM CDT Lab [facility] [place] [facility] ([facility]) [address] [place] [address] CKD (chronic kidney disease) stage 4, GFR 15-29 ml/min (HCC); Pancreas cyst; Osteoporosis, unspecified osteoporosis type, unspecified pathological fracture presence from Last 3 Months Immunizations Immunization Administration Dates Next Due Influenza, Quadrivalent, Spl it, Preservative Free, Intramuscular 09/25/2018 Surgical History Surgery Date Site/Laterality Comments FLUORO GUIDED ASPIRATION OR INJECTION LARGE JOINT BILATERAL 12/19/2023 Bilateral Medical History Medical History Date Comments Cervicalgia Neck pain - (Add ed by TW Conv) Essential (primary) hypertension Hypertension - Hypertension (Added by TW Conv) Essential (primary) hypertension Hypertension - Hypertension (Added by TW Conv) Rheumatoid arthritis (HCC) Family History Medical History Relation Name Comments Arthritis Mother Family history of arthritis - (Added by TW Conv) Heart attack Mother Heart failure Mother Hip fracture Mother Osteoporosis Mother Family history of osteoporosis - (Added by TW Conv) Broken bones Neg Hx Scoliosis Neg Hx Relation Name Status Comments Mother Social History Tobacco Use Types Packs/Day Years Used Date Smoking Tobacco: Never Smokeless Tobacco: Never Tobacco Cessation:Counseling Given: Not Answered Alcohol Use Standard Drinks/Week Comments No 0 (1 standard drink = 0.6 oz pur e alcohol) [facility] Utilities Answer Date Recorded In the past 12 months has e [employer], gas, oil, or water [employer] threatened to shut off services in your home? Patient declined 11/17/2023 Social Connection and Isolation Panel [NHANES] A nswer Date Recorded In a typical week, how many times do you talk on the phone with family, friends, or neighbors? Patient declined 11/17/2023 How often do you get togethe r with friends or relatives? Patient declined 11/17/2023 How often do you attend restorationist or mu-ism serv ices? Patient declined 11/17/2023 Do you belong to any clubs o r organizations such as restorationist groups, unions, fraternal or athletic groups, or [...] money to buy more. Never true 05/15/20 Within the past 12 months, t he [...] place to sleep or slept in a senior living (including now)? Patient declined 11/17/2023 Personal Safety Answer Date Recorded Have you ever been in or are you currently in a harmful physical or emotional relationship or is someone making you feel afraid or unsafe? Denies 12/12/2023 Comments No Sex and Gender Information Value Date Recorded Sex Assigned at Not on file Legal Sex Female 7:25 PM HOUSEHOLD APPLIANCE ASSEMBLER Gender Identity Female 07/13/2018 10:19 AM CDT Sexual Orientation Not on file Obstetrics History Last Filed Vital Signs Vital Sign Reading [...] Associated Diagnoses Date/Ti me COLONOSCOPY Healthcare maintenance Health Maintenance Due Date Last Done Comments Cervical Cancer Screening 1960 Depression Screening 1960 Hepatitis C Screening 1960 Hepatitis B Screening 1978 Regular Well Visit/Exam 18-64 1978 Zoster Vaccine (1 of 2) 1979 Pneumococcal vaccine <65 (2 of 2 - PCV) 01/31/2017 02/01/2016 Breast Cancer Screening-Mammogram 05/22/2025 05/22/2024, 05/19/2023, 05/03/2022, Additional history exists Influenza Vaccine (#1) 2025 09/25/2018 Colon Cancer Screening-Colonoscopy 06/08/2026 06/08/2016 DTaP/Tdap/Td Vaccine (2 - Td or Tdap) 07/12/2027 07/12/2017 Colon Cancer Screening-CT Colonography Discontinued 06/08/2016 Colon Cancer Screening-DNA Stool Discontinued 06/08/20 16 Colon Cancer Screening-FIT Discontinued 06/08/2016 Colon Cancer Screening-Sigmoidoscopy Discontinued 06/08/2016 Goals Goal Patient Goal Type Associated Problems [...] 2:04 PM CDT 04/28/2025 3:13 PM CDT Erin Jamil MD LAB BLOOD ORDERABLES Final Result [facility] * (ABNORMAL) [...] ORDERABLES Fi nal Result Performing Organization Address [facility] de Phone Number [facility] Department [place] [address] * Beta-CrossLaps (Beta-CTx) (03/07/2025 3:47 PM CDT) [...] CDT Mahesh Neal MD LAB BLOOD ORDERABLES nal Result Performing Organization Address [facility] de Phone Number [facility] [place] [place] [address] * Alkaline phosphatase, bone specific (03/07/2025 3:47 PM CDT) Alk phos, bone 16 mcg/L [facility] Comment: REFERENCE VALUE <=14 (Premenopausal) <=22 (Postmenopausal) ADDITIONAL INFORMATION Liver-derived alkaline phosphatase (ALP) increases apparent measured bone alkaline phosphatase (BAP) in this assay by 2.5 mcg/L to 5.8 mcg/L for every 100 U/L of liver ALP. Accordingly, serum specimens with significant elevations of liver ALP activity may yield artificially elevated results in the BAP assay. Test Performed by: [facility] [place] [address] [place] [address] Clipper Operator: Avery Osuna Ph.D.; CLIA# [id number] Blood 03/07/2025 3:47 PM CDT 03/07/2025 4:20 PM CDT Mahesh Neal MD LAB BLOOD ORDERABLES Fi nal Result Performing Organization Address City/[facility]/ZIP Co de Phone Number [facility] [place] [place] [address] [facility] * Vitamin D 25 hydroxy (03/07/2025 3:47 PM CDT) Vitamin D 25-OH 44 30 - 80 ng/mL Blood 03/07/2025 3:47 PM CDT 03/07/2025 4:20 PM CDT Mahesh Neal MD LAB BLOOD ORDERABLES Fi nal Result Performing Organization Address City/[facility] Co de Phone Number [facility] [place] [place] [address] * Uric acid (03/07/2025 3:47 PM CDT) Uric acid 6.0 2.5 - 7.0 mg/dL Blood 03/07/2025 3:47 PM CDT 03/07/2025 4:20 PM CDT Mahesh Neal MD LAB BLOOD ORDERABLES Fi nal Result Performing Organization Address City/[facility]/ZIP Co de Phone Number [facility] [place] [address] * Phosphorus (03/07/2025 3:47 PM CDT) [facility] Phosphorus, pl 3.9 2.3 - 4.5 mg/dL Blood 03/07/2025 3:47 PM CDT 03/07/2025 4:20 PM CDT Mahesh Neal MD LAB BLOOD ORDERABLES Fi nal Result Performing Organization Address City/[facility]/ZIP Co de Phone Number [facility] Department [place] [address] * (ABNORMAL) PTH (03/07/2025 3:47 PM CDT) [facility] PTH 189(H) 15 - 65 pg/mL Blood 03/07/2025 3:47 PM CDT 03/07/2025 4:20 PM CDT Mahesh Neal MD LAB BLOOD ORDERABLES Fi nal Result Performing Organization Address [facility] de Phone Number [facility] [place] [address] * (ABNORMAL) Comprehensive metabolic panel (03/07/2025 3:47 PM CDT) [facility] Sodium 142 135 - 145 mmol/L Potassium, pl 5.5(H) 3.3 - 4.9 mmol/L [facility] Chloride 108 97 - 110 mmol/L [facility] CO2 26 22 - 32 mmol/L [facility] Anion gap 8 2 - 15 mmol/L [facility] BUN 44(H) 6 - 25 mg/dL [facility] Creatinine 1.97(H) 0.60 - 1.10 mg/dL [facility] Glucose 120 70 - 199 mg/dL [facility] Comment: Interpretive Data Fasting glucose >/= 126 [...] 2022. Calcium 9.2 8.5 - 10.3 mg/dL [facility] Bilirubin, total 0.3 0.1 - 1.2 mg/dL [facility] Protein, pl 6.8 6.5 - 8.5 g/dL [facility] Albumin 3.8 3.5 - 5.0 g/dL [facility] Alk phos 91 40 - 130 Units/L [facility] ALT 14 7 - 45 Units/L [facility] AST 14 10 - 45 Units/L [facility] Blood 03/07/2025 3:47 PM CDT 03/07/2025 4:20 PM CDT Mahesh Neal MD LAB BLOOD ORDERABLES nal Result [facility] Department [place] [address] * (ABNORMAL) eGFR (02/08/2025 11:41 AM CDT) eGFR 28(L) >=60 mL/min/1. 73 m2 [...] ORDERABLES Final Re sult Performing Organization Address [facility] Co de Phone Number [facility] [place] [address] * Cancer antigen 19-9 (02/08/2025 11:41 AM CDT) CA 19-9 ag 25.7 <=35.0 units/mL Comment: Interpretive Data The Chelsie CA 19-9 assay procedure was used. Results from different manufacturers or methods may not be comparable. Serial testing should be performed using the same method. Blood 02/08/2025 11:4 1 AM CDT 02/08/2025 11:49 AM CDT Eden RAZO LAB BLOOD ORDERABLES Elvira l Result Performing Organization Address [facility] de Phone Number [facility] [place] [address] * Phosphorus (02/08/2025 11:41 AM CDT) Phosphorus, pl 3.3 2.3 - 4.5 mg/dL Blood 02/08/2025 11:4 1 AM CDT 02/08/2025 11:49 AM CDT Dona Sawyer MD LAB BLOOD ORDERABLES Final Re sult Performing Organization Address [facility] Co de Phone Number [facility] [place] [address] * (ABNORMAL) PTH (02/08/2025 11:41 AM CDT) PTH 102(H) 15 - 65 pg/mL Blood 02/08/2025 11:4 1 AM CDT 02/08/2025 11:49 AM CDT Dona Sawyer MD LAB BLOOD ORDERABLES Final Re sult [facility] Department [place] [address] * (ABNORMAL) Comprehensive metabolic panel (02/08/2025 11:41 AM CDT) Sodium 141 135 - 145 mmol/L Potassium, pl 4.7 3.3 - 4.9 mmol/L [facility] Chloride 106 97 - 110 mmol/L [facility] CO2 27 22 - 32 mmol/L [facility] Anion gap 8 2 - 15 mmol/L [facility] BUN 29(H) 6 - 25 mg/dL [facility] Creatinine 1.95(H) 0.60 - 1.10 mg/dL [facility] Glucose 150 70 - 199 mg/dL [facility] Comment: Interpretive Data Fasting glucose >/= 126 [...] 2022. Calcium 9.5 8.5 - 10.3 mg/dL [facility] Bilirubin, total 0.4 0.1 - 1.2 mg/dL [facility] Protein, pl 6.6 6.5 - 8.5 g/dL [facility] Albumin 3.7 3.5 - 5.0 g/dL [facility] Alk phos 100 40 - 130 Units/L [facility] ALT 13 7 - 45 Units/L [facility] AST 14 10 - 45 Units/L [facility] Blood 02/08/2025 11:4 1 AM CDT 02/08/2025 11:49 AM CDT Dona Sawyer MD LAB BLOOD ORDERABLES Final Re sult [facility] Department [place] [address] * Screening Mammogram Bilateral W Ravin (05/22/2024 1:17 PM CDT) Anatomical Region Laterality Modality Breast Bilateral Mammography Narrative 05/23/2024 4:54 PM CDT Mammogram Technique: Bilateral Digital Breast Tomosynthesis, Bilateral C-view 2D Screening mammogram. Views obtained: bilateral craniocaudal and bilateral mediolateral oblique. Computer Aided Detection was performed. Mammogram Findings: The present examination has been compared to prior imaging studies performed at [facility] on 04/29/2021, 05/03/2022 and 05/19/2023. The breasts [...] to prior imaging studies performed at [facility] on 04/29/2021, 05/03/2022 and 05/19/2023. The breasts [...] Narrative 06/08/2016 Ordered by an unspecified provider. us Historical Provider GI PROCEDURE ORDERABLES F inal Result from Last 3 Months or Most Recently Relevant to Health Maintenance Insurance [facility] Advance Directives For more information, please contact: [phone] * Full Code (Latest Code Status on File) Date Activated Date Inactivated Comments 11/13/2023 7:39 PM 11/16/2023 4:56 PM * Full Code Date Activated Date Inactivated Comments 10/20/2022 2:02 PM 10/20/2022 8:58 PM Care Teams Veterinary Surgeon Relationship Specialty Start Date End Date Jose Dahl MD [address] [place] [address] PCP - General Internal Medicine 11/29/22 Sam Gonsalez MD [address] [address] Referring Physician Cardiology 11/16/23
--- NOTE | 2025-05-08 11:55 | PC.NURSE ---
Dr. Washington notified of pt. V.S. Sepsis protocol initiated.
--- OUTSIDE RECORDS SUMMARY | 2025-05-08 12:03 | XMS_ITS | Referral Summary ---
Author Organization [facility] Address [address] [place] [address] Care Team Providers Care Mortuary Technician Name Role Phone Jose Dahl MD Primary Care Provider [phone] Sam Gonsalez MD Unavailable [phone] Encounters Date Type Department Care Team Description 04/29/2025 Results Follow-Up [facility] Rheumatology [address] [facility] [address] [place] [address] Erin Jamil MD Comprehensive metabolic panel, CBC with auto differential 04/28/2025 2:15 PM CDT - 04/28/2025 11:59 PM CDT Hospital Encounter [facility] [address] [place] [address] Erin Jamil MD Discharge Disposition: Discharge to home or self care 04/28/2025 2:[address] [facility] Endocrinology Metabolism and Lipid [address] [facility] Advanced Medicine 5th [place] [address] [place] [address] High risk medication use 04/28/2025 1:30 PM CDT Office Visit [facility] Rheumatology [facility] Medicine 5th [place] [address] [place] [address] Erin Jamil MD Rheumatoid arthritis with rheumatoid [...] pain syndrome 03/07/2025 7:10 PM CDT Lab [facility]) [address] [place] [id number] Osteoporosis with current pathological fracture, unspecified osteoporosis type, sequela; Renal osteodystrophy; Osteoporosis, unspecified osteoporosis type, unspecified pathological fracture presence 03/07/[address] [place] [address] Mahesh Neal MD 03/07/2025 2:20 PM CDT Office Visit [address] 5th [place] [address] [place] [address] Mahesh Neal MD Osteoporosis with current pathological fracture, unspecified osteoporosis type, sequela (Primary Dx); Renal osteodystrophy; Osteoporosis, unspecified osteoporosis type, unspecified pathological fracture presence; Chronic renal impairment, stage 3b (HCC); Chronic kidney disease-mineral and bone disorder (CKD-MBD) 03/05/[address] Medical Office [address] [place] [address] Nidia Spencer DNP 02/18/2025 11:00 AM CDT Office Visit [facility] Surgery [address] [place] [address] [address] [place] [address] Delma Murray MD Lesion of pancreas 02/08/2025 11:40 AM CDT Lab [facility]) [address] [place] [id number] CKD (chronic kidney disease) stage 4, GFR 15-29 ml/min ([facility]); Pancreas cyst; Osteoporosis, unspecified osteoporosis type, unspecified [...] 11/13/2023 Assessment & Plan (11/15/2023 12:23 PM EMPLOYMENT CASE MANAGER): Presents with several days of nausea, vomiting [...] intake Assessment & Plan (11/14/2023 4:16 PM EMPLOYMENT CASE MANAGER): Presents with several days of nausea, vomiting [...] 11/12/2023 Assessment & Plan (11/15/2023 12:27 PM EMPLOYMENT CASE MANAGER): -elevated troponin to 3786 in ED with no acute ischemic changes on EKG -previous [facility] 10/20/22 with 40% mid LAD, 75% ostial small 1st diagonal, 50% mid RCA -elevated troponin likely reflects increased demand in setting of infection -treat infection as outlined above -tele -TTE with EF 48% (decreased from 55-60% in 10/2022) -plan for repeat ischemic eval as an outpatient once infection and EUNICE resolved Assessment & Plan (11/14/2023 4:17 PM EMPLOYMENT CASE MANAGER): -elevated troponin to 3786 in ED with no acute ischemic changes on EKG -previous [facility] 10/20/22 with 40% mid LAD, 75% ostial small 1st diagonal, 50% mid RCA -elevated troponin likely reflects increased demand in setting of infection -treat infection as outlined above -TTE -tele Chronic coronary artery disease 10/11/2023 BMI 40.0-44.9, adult 10/11/2023 Osteoarthritis of left knee, unspecified osteoarthritis type 09/21/2023 Assessment & Plan (09/22/2023 4:57 PM EMPLOYMENT CASE MANAGER): Patient with history of bilateral osteoarthritis now [...] adapt. Assessment & Plan (11/15/2023 12:24 PM EMPLOYMENT CASE MANAGER): -continue home CPAP Assessment & Plan (11/13/2023 6:43 PM EMPLOYMENT CASE MANAGER): -continue home CPAP Assessment & Plan (09/21/2023 4:09 PM EMPLOYMENT CASE MANAGER): CPAP at 8 Assessment & Plan (08/31/2023 [...] q8h Assessment & Plan (09/25/2018 9:39 AM EMPLOYMENT CASE MANAGER): - Xray with multilevel degenerative disc disease [...] D Assessment & Plan (09/24/2018 5:26 PM EMPLOYMENT CASE MANAGER): According to DEXA in 04/2014. Ca and [...] dose. Assessment & Plan (11/15/2023 12:32 PM EMPLOYMENT CASE MANAGER): Baseline Cr 1.6-2.0 -Cr 2.37, EUNICE likely secondary to infection -monitor closely while treating pyelonephritis -renally dose meds, minimize nephrotoxins -CT with ill-defined masslike lesion left kidney upper pole. Recommend further evaluation with renal protocol MRI without and with intravenous contrast - will consider MRI as an outpatient once EUNICE resolves. Assessment & Plan (11/13/2023 6:51 PM EMPLOYMENT CASE MANAGER): Baseline Cr 1.6-2.0 -currently at baseline on admission -monitor closely while treating pyelonephritis -renally dose meds, minimize nephrotoxins Assessment & Plan (09/22/2023 5:01 PM EMPLOYMENT CASE MANAGER): Patient with CKD stage 3. Creatinine slightly [...] Plan (04/23/2019 8:46 AM CDT): - F/w [facility] nephrology - Secondary to hypertensive nephropathy and chronic NSAID use - Serum stable at Cr 1.4 with a GFR between 40-60 - Avoid nephrotoxins, cont to f/u with nephrology Assessment & Plan (09/25/2018 3:27 PM EMPLOYMENT CASE MANAGER): F/w [facility] nephrology - Secondary to hypertensive nephropathy and chronic NSAID use - Serum Cr 1.4, recheck BMP in two weeks - Avoid nephrotoxins, cont to f/u with nephrology Hypertension 02/05/2011 Assessment & Plan (11/15/2023 12:28 PM EMPLOYMENT CASE MANAGER): -hold home lisinopril and amlodipine for now while treating infection -monitor closely Assessment & Plan (11/14/2023 4:18 PM EMPLOYMENT CASE MANAGER): -hold home lisinopril and amlodipine for now while treating infection -monitor closely Assessment & Plan (09/22/2023 4:59 PM EMPLOYMENT CASE MANAGER): Continue amlodipine and Lisinopril - held lisinopril [...] activities Assessment & Plan (09/25/2018 3:26 PM EMPLOYMENT CASE MANAGER): - BP still elevated to 162/84 - [...] 07/13/2006 Assessment & Plan (11/15/2023 12:19 PM EMPLOYMENT CASE MANAGER): History of seronegative RA -last dose of methotrexate 11/07/23, will hold while treating infection Assessment & Plan (11/14/2023 4:07 PM EMPLOYMENT CASE MANAGER): History of seronegative RA -last dose of methotrexate 11/07/23, will hold while treating infection Assessment & Plan (09/21/2023 4:09 PM EMPLOYMENT CASE MANAGER): Seronegative RA followed by rheumatology MTX 15mg q week on Tuesdays and folic acid Assessment & Plan (05/29/2020 9:27 AM CDT): Cont MTX and Folic Acid per rheum Assessment & Plan (08/29/2019 9:35 AM CDT): - Follows with [facility] rheumatology - Symptoms manageable with current MTX regimen w/ no recent episodes of a flare - No boutoniere or swan neck deformity and no synovitis - No signs or symptoms of RA complication and labs are wnl - Cont to follow up with rheumatology Assessment & Plan (04/23/2019 7:55 AM CDT): - Follows with [facility] rheumatology - Symptoms manageable with current MTX regimen w/ no recent episodes of a flare - No boutoniere or swan neck deformity and no synovitis - No signs or symptoms of RA complication and labs are wnl - Cont to follow up with rheumatology Assessment & Plan (09/24/2018 5:24 PM EMPLOYMENT CASE MANAGER): - Follows with [facility] rheumatology - Symptoms manageable with current MTX regimen w/ no recent episodes of a flare - No boutoniere or swan neck deformity and no synovitis - No signs or symptoms of RA complication and labs are wnl - Cont to follow up with rheumatology Resolved Problems Problem Noted Date Diagnosed Date Resolved Date Snoring 11/29/2022 04/27/2023 Assessment & Plan (11/29/2022 11:04 AM EMPLOYMENT CASE MANAGER): I have ordered a nocturnal polysomnogram split [...] 09/25/18 Assessment & Plan (09/25/2018 3:29 PM EMPLOYMENT CASE MANAGER): Colonoscopy: 2016 ( small and large mouth [...] prn Assessment & Plan (09/25/2018 9:49 AM EMPLOYMENT CASE MANAGER): Xray with moderate patellofemoral compartment predominant tricompartmental [...] drink = 0.6 oz pur e alcohol) [facility] Utilities Answer Date Recorded In the past 12 months has e [employer], gas, oil, or water [place] threatened to shut off services in your home? Patient declined 11/17/2023 Social Connection and Isolation Panel [NHANES] A nswer Date Recorded In a typical week, how many times do you talk on the phone with family, friends, or neighbors? Patient declined 11/17/2023 How often do you get togethe r with friends or relatives? Patient declined 11/17/2023 How often do you attend catholic or jehovah's witness serv ices? Patient declined 11/17/2023 Do you belong to any clubs o r organizations such as catholic groups, unions, fraternal or athletic groups, or [...] place to sleep or slept in a group home (including now)? Patient declined 11/17/2023 Personal Safety Answer Date Recorded Have you ever been in or are you currently in a harmful physical or emotional relationship or is someone making you feel afraid or unsafe? Denies 12/12/2023 Comments No Sex and Gender Information Value Date Recorded Sex Assigned at Not on file Legal Sex Female 7:25 PM EMPLOYMENT CASE MANAGER Gender Identity Female 07/13/2018 10:19 AM CDT [...] ORDERABLES Fi nal Result Performing Organization Address [facility] de Phone Number [facility] Department [place] [address] * Beta-CrossLaps (Beta-CTx) (03/07/2025 3:47 PM CDT) [...] ORDERABLES Fi nal Result Performing Organization Address City/[facility] Co de Phone Number [facility] [place] [address] * Alkaline phosphatase, bone specific (03/07/2025 3:47 PM CDT) Pathologist [facility] Alk phos, bone 16 mcg/L [facility] ref [...] in the BAP assay. Test Performed by: [place] [address] Power Operator: Avery Osuna Ph.D.; CLIA# [id number] Blood 03/07/2025 3:47 PM CDT 03/07/2025 4:20 PM CDT Mahesh Neal MD LAB BLOOD ORDERABLES Fi nal Result Performing Organization Address [facility] de Phone Number [facility] [employer] [place] [address] [facility] * Vitamin D 25 hydroxy (03/07/2025 3:47 PM CDT) [facility] Vitamin D 25-OH 44 30 - 80 ng/mL Blood 03/07/2025 3:47 PM CDT 03/07/2025 4:20 PM CDT Mahesh Neal MD LAB BLOOD ORDERABLES Fi nal Result Performing Organization Address [facility] Co de Phone Number [facility] [place] [address] * Uric acid (03/07/2025 3:47 PM CDT) Uric acid 6.0 2.5 - 7.0 mg/dL Blood 03/07/2025 3:47 PM CDT 03/07/2025 4:20 PM CDT Result [facility] Mahesh Neal MD LAB BLOOD ORDERABLES Fi nal Result Performing Organization Address City/[facility] Co de Phone Number [facility] [place] [address] * Phosphorus (03/07/2025 3:47 PM CDT) Pathologist [facility] Phosphorus, pl 3.9 2.3 - 4.5 mg/dL Blood 03/07/2025 3:47 PM CDT 03/07/2025 4:20 PM CDT Result [facility] Mahesh Neal MD LAB BLOOD ORDERABLES Fi nal Result Performing Organization Address [facility] Co de Phone Number [facility] [place] [address] * (ABNORMAL) PTH (03/07/2025 3:47 PM CDT) [facility] PTH 189(H) 15 - 65 pg/mL Blood 03/07/2025 3:47 PM CDT 03/07/2025 4:20 PM CDT Result [facility] Mahesh Neal MD LAB BLOOD ORDERABLES Fi nal Result Performing Organization Address [facility] de Phone Number [facility] [place] [address] * (ABNORMAL) Comprehensive metabolic panel (03/07/2025 3:47 PM CDT) [facility] Sodium 142 135 - 145 mmol/L Potassium, pl 5.5(H) 3.3 - 4.9 mmol/L [facility] Chloride 108 97 - 110 mmol/L [facility] CO2 26 22 - 32 mmol/L [facility] Anion gap 8 2 - 15 mmol/L [facility] BUN 44(H) 6 - 25 mg/dL [facility] Creatinine 1.97(H) 0.60 - 1.10 mg/dL [facility] Glucose 120 70 - 199 mg/dL [facility] Comment: Interpretive Data Fasting glucose >/= [...] 2022. Calcium 9.2 8.5 - 10.3 mg/dL [facility] Bilirubin, total 0.3 0.1 - 1.2 mg/dL [facility] Protein, pl 6.8 6.5 - 8.5 g/dL [facility] Albumin 3.8 3.5 - 5.0 g/dL [facility] Alk phos 91 40 - 130 Units/L [facility] ALT 14 7 - 45 Units/L [facility] AST 14 10 - 45 Units/L [facility] Blood 03/07/2025 3:47 PM CDT 03/07/2025 4:20 PM CDT Mahesh Neal MD LAB BLOOD ORDERABLES Fi nal Result [facility] [place] [address] * (ABNORMAL) eGFR (02/08/2025 11:41 AM CDT) Pathologist [facility] eGFR 28(L) >=60 mL/min/1. 73 m2 Comment: [...] ORDERABLES Final Re sult Performing Organization Address City/[facility] Co de Phone Number [facility] [place] [address] * Cancer antigen 19-9 (02/08/2025 11:41 AM CDT) Pathologist [facility] CA 19-9 ag 25.7 <=35.0 units/mL Comment: Interpretive Data The Chelsie CA 19-9 assay procedure was used. Results from different manufacturers or methods may not be comparable. Serial testing should be performed using the same method. Blood 02/08/2025 11:4 1 AM CDT 02/08/2025 11:49 AM CDT us [facility] LAB BLOOD ORDERABLES Elvira l Result Performing Organization Address City/[facility]/ZIP Co de Phone Number [facility] [place] [address] * Phosphorus (02/08/2025 11:41 AM CDT) Phosphorus, pl 3.3 2.3 - 4.5 mg/dL Blood 02/08/2025 11:4 1 AM CDT 02/08/2025 11:49 AM CDT Dona Sawyer MD LAB BLOOD ORDERABLES Final Re sult Performing Organization Address [facility] Co de Phone Number [facility] [place] [address] * (ABNORMAL) PTH (02/08/2025 11:41 AM CDT) Pathologist [facility] PTH 102(H) 15 - 65 pg/mL Blood 02/08/2025 11:4 1 AM CDT 02/08/2025 11:49 AM CDT Dona Sawyer MD LAB BLOOD ORDERABLES Final Re sult Performing Organization Address [facility] de Phone Number [facility] [place] [address] * (ABNORMAL) Comprehensive metabolic panel (02/08/2025 11:41 AM CDT) [facility] Sodium 141 135 - 145 mmol/L Potassium, pl 4.7 3.3 - 4.9 mmol/L [facility] Chloride 106 97 - 110 mmol/L [facility] CO2 27 22 - 32 mmol/L [facility] Anion gap 8 2 - 15 mmol/L [facility] BUN 29(H) 6 - 25 mg/dL [facility] Creatinine 1.95(H) 0.60 - 1.10 mg/dL [facility] Glucose 150 70 - 199 mg/dL [facility] Comment: Interpretive Data Fasting glucose >/= [...] Calcium 9.5 8.5 - 10.3 mg/dL [facility] Bilirubin, total 0.4 0.1 - 1.2 mg/dL [facility] Protein, pl 6.6 6.5 - 8.5 g/dL [facility] Albumin 3.7 3.5 - 5.0 g/dL [facility] Alk phos 100 40 - 130 Units/L [facility] ALT 13 7 - 45 Units/L [facility] AST 14 10 - 45 Units/L [facility] Blood 02/08/2025 11:4 1 AM CDT 02/08/2025 11:49 AM CDT us Dona Sawyer MD LAB BLOOD ORDERABLES Final Re sult [facility] [place] [address] * Screening Mammogram Bilateral W Ravin (05/22/2024 1:17 PM CDT) Anatomical Region Laterality Modality Breast Bilateral Mammography Narrative 05/23/2024 4:54 PM CDT Mammogram Technique: Bilateral Digital Breast Tomosynthesis, Bilateral C-view 2D Screening mammogram. Views obtained: bilateral craniocaudal and bilateral mediolateral oblique. Computer Aided Detection was performed. Mammogram Findings: The present examination has been compared to prior imaging studies performed at [facility] on 04/29/2021, 05/03/2022 and 05/19/2023. The [...] compared to prior imaging studies performed at [facility] on 04/29/2021, 05/03/2022 and 05/19/2023. The [...] Narrative 06/08/2016 Ordered by an unspecified provider. [facility] Provider MD AGUILERA PROCEDURE ORDERABLES F inal Result from Last 3 Months or Most Recently Relevant to Health Maintenance Insurance [facility] Advance Directives For more information, please contact: [phone] * Full Code (Latest Code Status on File) Date Activated Date Inactivated Comments 11/13/2023 7:39 PM 11/16/2023 4:56 PM * Full Code Date Activated Date Inactivated Comments 10/20/2022 2:02 PM 10/20/2022 8:58 PM Care Teams Mortuary Technician Relationship Specialty Start Date End Date Jose Dahl MD [address] [place] [address] PCP - General Internal Medicine 11/29/22 Sam Gonsalez MD [address] [address] Referring Physician Cardiology 11/16/23
--- OUTSIDE RECORDS SUMMARY | 2025-05-08 12:03 | XMS_ITS | Clinical Summary ---
Author Organization [facility] Address [address] [place] [address] Care Team Providers Care Integrated Logistics Support Manager Name Role Phone Jose Dahl MD Primary Care Provider [phone] Sam Gonsalez MD Unavailable [phone] Allergies No known active allergies Medications [...] 11/13/2023 Assessment & Plan (11/15/2023 12:23 PM WINDOW CLEANER): Presents with several days of nausea, vomiting [...] intake Assessment & Plan (11/14/2023 4:16 PM WINDOW CLEANER): Presents with several days of nausea, vomiting [...] 11/12/2023 Assessment & Plan (11/15/2023 12:27 PM WINDOW CLEANER): -elevated troponin to 3786 in ED with no acute ischemic changes on EKG -previous [facility] 10/20/22 with 40% mid LAD, 75% ostial small 1st diagonal, 50% mid RCA -elevated troponin likely reflects increased demand in setting of infection -treat infection as outlined above -tele -TTE with EF 48% (decreased from 55-60% in 10/2022) -plan for repeat ischemic eval as an outpatient once infection and EUNICE resolved Assessment & Plan (11/14/2023 4:17 PM WINDOW CLEANER): -elevated troponin to 3786 in ED with no acute ischemic changes on EKG -previous [facility] 10/20/22 with 40% mid LAD, 75% ostial small 1st diagonal, 50% mid RCA -elevated troponin likely reflects increased demand in setting of infection -treat infection as outlined above -TTE -tele Chronic coronary artery disease 10/11/2023 BMI 40.0-44.9, adult 10/11/2023 Osteoarthritis of left knee, unspecified osteoarthritis type 09/21/2023 Assessment & Plan (09/22/2023 4:57 PM WINDOW CLEANER): Patient with history of bilateral osteoarthritis now [...] adapt. Assessment & Plan (11/15/2023 12:24 PM WINDOW CLEANER): -continue home CPAP Assessment & Plan (11/13/2023 6:43 PM WINDOW CLEANER): -continue home CPAP Assessment & Plan (09/21/2023 4:09 PM WINDOW CLEANER): CPAP at 8 Assessment & Plan (08/31/2023 [...] q8h Assessment & Plan (09/25/2018 9:39 AM WINDOW CLEANER): - Xray with multilevel degenerative disc disease [...] D Assessment & Plan (09/24/2018 5:26 PM WINDOW CLEANER): According to DEXA in 04/2014. Ca and [...] dose. Assessment & Plan (11/15/2023 12:32 PM WINDOW CLEANER): Baseline Cr 1.6-2.0 -Cr 2.37, EUNICE likely secondary to infection -monitor closely while treating pyelonephritis -renally dose meds, minimize nephrotoxins -CT with ill-defined masslike lesion left kidney upper pole. Recommend further evaluation with renal protocol MRI without and with intravenous contrast - will consider MRI as an outpatient once EUNICE resolves. Assessment & Plan (11/13/2023 6:51 PM WINDOW CLEANER): Baseline Cr 1.6-2.0 -currently at baseline on admission -monitor closely while treating pyelonephritis -renally dose meds, minimize nephrotoxins Assessment & Plan (09/22/2023 5:01 PM WINDOW CLEANER): Patient with CKD stage 3. Creatinine slightly [...] Plan (04/23/2019 8:46 AM CDT): - F/w [facility] nephrology - Secondary to hypertensive nephropathy and chronic NSAID use - Serum stable at Cr 1.4 with a GFR between 40-60 - Avoid nephrotoxins, cont to f/u with nephrology Assessment & Plan (09/25/2018 3:27 PM WINDOW CLEANER): F/w [facility] nephrology - Secondary to hypertensive nephropathy and chronic NSAID use - Serum Cr 1.4, recheck BMP in two weeks - Avoid nephrotoxins, cont to f/u with nephrology Hypertension 02/05/2011 Assessment & Plan (11/15/2023 12:28 PM WINDOW CLEANER): -hold home lisinopril and amlodipine for now while treating infection -monitor closely Assessment & Plan (11/14/2023 4:18 PM WINDOW CLEANER): -hold home lisinopril and amlodipine for now while treating infection -monitor closely Assessment & Plan (09/22/2023 4:59 PM WINDOW CLEANER): Continue amlodipine and Lisinopril - held lisinopril [...] activities Assessment & Plan (09/25/2018 3:26 PM WINDOW CLEANER): - BP still elevated to 162/84 - [...] 07/13/2006 Assessment & Plan (11/15/2023 12:19 PM WINDOW CLEANER): History of seronegative RA -last dose of methotrexate 11/07/23, will hold while treating infection Assessment & Plan (11/14/2023 4:07 PM WINDOW CLEANER): History of seronegative RA -last dose of methotrexate 11/07/23, will hold while treating infection Assessment & Plan (09/21/2023 4:09 PM WINDOW CLEANER): Seronegative RA followed by rheumatology MTX 15mg q week on Tuesdays and folic acid Assessment & Plan (05/29/2020 9:27 AM CDT): Cont MTX and Folic Acid per rheum Assessment & Plan (08/29/2019 9:35 AM CDT): - Follows with [facility] rheumatology - Symptoms manageable with current MTX regimen w/ no recent episodes of a flare - No boutoniere or swan neck deformity and no synovitis - No signs or symptoms of RA complication and labs are wnl - Cont to follow up with rheumatology Assessment & Plan (04/23/2019 7:55 AM CDT): - Follows with [facility] rheumatology - Symptoms manageable with current MTX regimen w/ no recent episodes of a flare - No boutoniere or swan neck deformity and no synovitis - No signs or symptoms of RA complication and labs are wnl - Cont to follow up with rheumatology Assessment & Plan (09/24/2018 5:24 PM WINDOW CLEANER): - Follows with [facility] rheumatology - Symptoms manageable with current MTX regimen w/ no recent episodes of a flare - No boutoniere or swan neck deformity and no synovitis - No signs or symptoms of RA complication and labs are wnl - Cont to follow up with rheumatology Resolved Problems Problem Noted Date Diagnosed Date Resolved Date Snoring 11/29/2022 04/27/2023 Assessment & Plan (11/29/2022 11:04 AM WINDOW CLEANER): I have ordered a nocturnal polysomnogram split [...] provided a handout from Allison Bashir of [facility]. She will trial APAP PRN and was [...] 09/25/18 Assessment & Plan (09/25/2018 3:29 PM WINDOW CLEANER): Colonoscopy: 2016 ( small and large mouth [...] prn Assessment & Plan (09/25/2018 9:49 AM WINDOW CLEANER): Xray with moderate patellofemoral compartment predominant tricompartmental right knee osteoarthritis. - Tylenol 1 g q8h prn Encounters Date Type Department Care Team Description 04/29/2025 Results Follow-Up [facility] Rheumatology [address] [place] [address] [address] [place] [address] Erin Jamil MD Comprehensive metabolic panel, CBC with auto differential 04/28/2025 2:15 PM CDT - 04/28/2025 11:59 PM CDT Hospital Encounter [facility] [address] [place] [address] Erin Jamil MD Discharge Disposition: Discharge to home or self care 04/28/2025 2:[address] [facility] Endocrinology Metabolism and Lipid [address] [facility] for [facility] 5th [place] [address] [place] [address] High risk medication use 04/28/2025 1:30 PM CDT Office Visit [facility] Rheumatology [address] [facility] 5th [place] [address] [place] [address] Erin Jamil MD Rheumatoid arthritis with rheumatoid [...] pain syndrome 03/07/2025 7:10 PM CDT Lab [facility] ([facility]) [address] [place] [phone] Osteoporosis with current pathological fracture, unspecified osteoporosis type, sequela; Renal osteodystrophy; Osteoporosis, unspecified osteoporosis type, unspecified pathological fracture presence 03/07/2025 2:20 PM CDT Office Visit [address] 5th [place] [address] [place] [address] Mahesh Neal MD Osteoporosis with current pathological fracture, unspecified osteoporosis type, sequela (Primary Dx); Renal osteodystrophy; Osteoporosis, unspecified osteoporosis type, unspecified pathological fracture presence; Chronic renal impairment, stage 3b (HCC); Chronic kidney disease-mineral and bone disorder (CKD-MBD) 03/07/[address] [place] [address] Mahesh Neal MD 03/05/[address] [place] [address] Nidia Spencer DNP 02/18/2025 11:00 AM CDT Office Visit [facility] Surgery [address] [place] [address] [address] [place] [address] Delma Murray MD Lesion of pancreas 02/08/2025 11:40 AM CDT Lab [facility] [place] [facility] ([facility]) [address] [place] [address] CKD (chronic kidney disease) stage [...] 0.6 oz pur e alcohol) [facility] Utilities Answer Date Recorded In the past 12 months has e [employer], gas, oil, or water [facility] threatened to shut off services in your home? Patient declined 11/17/2023 Social Connection and Isolation Panel [NHANES] A nswer Date Recorded In a typical week, how many times do you talk on the phone with family, friends, or neighbors? Patient declined 11/17/2023 How often do you get togethe r with friends or relatives? Patient declined 11/17/2023 How often do you attend bahai or caodaism serv ices? Patient declined 11/17/2023 Do you belong to any clubs o r organizations such as bahai groups, unions, fraternal or athletic groups, or [...] place to sleep or slept in a fdc (including now)? Patient declined 11/17/2023 Personal Safety Answer Date Recorded Have you ever been in or are you currently in a harmful physical or emotional relationship or is someone making you feel afraid or unsafe? Denies 12/12/2023 Comments No Sex and Gender Information Value Date Recorded Sex Assigned at Not on file Legal Sex Female 7:25 PM WINDOW CLEANER Gender Identity Female 07/13/2018 10:19 AM CDT [...] stenosis on the left. Dictated by: Jean uLcia MD The radiology attending physician has personally [...] ORDERABLES Fi nal Result Performing Organization Address [facility] de Phone Number [facility] Department [place] [address] * Beta-CrossLaps (Beta-CTx) (03/07/2025 3:47 PM CDT) [...] BLOOD ORDERABLES nal Result Performing Organization Address [facility] de Phone Number [facility] [place] [address] * Alkaline phosphatase, bone specific (03/07/2025 3:47 PM CDT) Alk phos, bone 16 mcg/L [facility] Comment: REFERENCE VALUE <=14 (Premenopausal) <=22 (Postmenopausal) ADDITIONAL INFORMATION Liver-derived alkaline phosphatase (ALP) increases apparent measured bone alkaline phosphatase (BAP) in this assay by 2.5 mcg/L to 5.8 mcg/L for every 100 U/L of liver ALP. Accordingly, serum specimens with significant elevations of liver ALP activity may yield artificially elevated results in the BAP assay. Test Performed by: [facility] [address] [place] [address] Cupola Hoist Operator: Avery Osuna Ph.D.; CLIA# [id number] Blood 03/07/2025 3:47 PM CDT 03/07/2025 4:20 PM CDT Mahesh Neal MD LAB BLOOD ORDERABLES Fi nal Result Performing Organization Address City/[facility]/ZIP Co de Phone Number [facility] [place] [address] [facility] * Vitamin D 25 hydroxy (03/07/2025 3:47 PM CDT) Vitamin D 25-OH 44 30 - 80 ng/mL Blood 03/07/2025 3:47 PM CDT 03/07/2025 4:20 PM CDT Mahesh Neal MD LAB BLOOD ORDERABLES Fi nal Result Performing Organization Address City/[facility] Co de Phone Number [facility] [place] [address] * Uric acid (03/07/2025 3:47 PM CDT) Uric acid 6.0 2.5 - 7.0 mg/dL Blood 03/07/2025 3:47 PM CDT 03/07/2025 4:20 PM CDT Mahesh Neal MD LAB BLOOD ORDERABLES Fi nal Result Performing Organization Address City/[facility]/ZIP Co de Phone Number [facility] [place] [address] * Phosphorus (03/07/2025 3:47 PM CDT) [facility] Phosphorus, pl 3.9 2.3 - 4.5 mg/dL Blood 03/07/2025 3:47 PM CDT 03/07/2025 4:20 PM CDT Mahesh Neal MD LAB BLOOD ORDERABLES Fi nal Result Performing Organization Address City/[facility]/ZIP Co de Phone Number [facility] [place] [address] * (ABNORMAL) PTH (03/07/2025 3:47 PM CDT) [facility] PTH 189(H) 15 - 65 pg/mL Blood 03/07/2025 3:47 PM CDT 03/07/2025 4:20 PM CDT Mahesh Neal MD LAB BLOOD ORDERABLES Fi nal Result Performing Organization Address [facility] de Phone Number [facility] [place] [address] * (ABNORMAL) Comprehensive metabolic panel (03/07/2025 3:47 PM CDT) [facility] Sodium 142 135 - 145 mmol/L Potassium, pl 5.5(H) 3.3 - 4.9 mmol/L [facility] Chloride 108 97 - 110 mmol/L [facility] CO2 26 22 - 32 mmol/L [facility] Anion gap 8 2 - 15 mmol/L [facility] BUN 44(H) 6 - 25 mg/dL [facility] Creatinine 1.97(H) 0.60 - 1.10 mg/dL [facility] Glucose 120 70 - 199 mg/dL [facility] Comment: Interpretive Data Fasting glucose >/= 126 [...] AST 14 10 - 45 Units/L [facility] Blood 03/07/2025 3:47 PM CDT 03/07/2025 4:20 PM CDT Mahesh Neal MD LAB BLOOD ORDERABLES nal Result [facility] Department [place] [address] * (ABNORMAL) eGFR (02/08/2025 11:41 AM CDT) [...] ORDERABLES Final Re sult Performing Organization Address [facility] Co de Phone Number [facility] [place] [address] * Cancer antigen 19-9 (02/08/2025 11:41 AM [...] ORDERABLES Elvira l Result Performing Organization Address [facility] de Phone Number [facility] [place] [address] * Phosphorus (02/08/2025 11:41 AM CDT) Phosphorus, pl 3.3 2.3 - 4.5 mg/dL Blood 02/08/2025 11:4 1 AM CDT 02/08/2025 11:49 AM CDT Dona Sawyer MD LAB BLOOD ORDERABLES Final Re sult Performing Organization Address [facility] Co de Phone Number [facility] [place] [address] * (ABNORMAL) PTH (02/08/2025 11:41 AM CDT) PTH 102(H) 15 - 65 pg/mL Blood 02/08/2025 11:4 1 AM CDT 02/08/2025 11:49 AM CDT Dona Sawyer MD LAB BLOOD ORDERABLES Final Re sult [facility] Department [place] [address] * (ABNORMAL) Comprehensive metabolic panel (02/08/2025 11:41 AM CDT) Sodium 141 135 - 145 mmol/L Potassium, pl 4.7 3.3 - 4.9 mmol/L [facility] Chloride 106 97 - 110 mmol/L [facility] CO2 27 22 - 32 mmol/L [facility] Anion gap 8 2 - 15 mmol/L [facility] BUN 29(H) 6 - 25 mg/dL [facility] Creatinine 1.95(H) 0.60 - 1.10 mg/dL [facility] Glucose 150 70 - 199 mg/dL [facility] Comment: Interpretive Data Fasting glucose >/= 126 [...] 2022. Calcium 9.5 8.5 - 10.3 mg/dL [facility] Bilirubin, total 0.4 0.1 - 1.2 mg/dL [facility] Protein, pl 6.6 6.5 - 8.5 g/dL [facility] Albumin 3.7 3.5 - 5.0 g/dL [facility] Alk phos 100 40 - 130 Units/L [facility] ALT 13 7 - 45 Units/L [facility] AST 14 10 - 45 Units/L [facility] Blood 02/08/2025 11:4 1 AM CDT 02/08/2025 11:49 AM CDT Dona Sawyer MD LAB BLOOD ORDERABLES Final Re sult [facility] [place] [address] * Screening Mammogram Bilateral W Ravin (05/22/2024 1:17 PM CDT) Anatomical Region Laterality Modality Breast Bilateral Mammography Narrative 05/23/2024 4:54 PM CDT Mammogram Technique: Bilateral Digital Breast Tomosynthesis, Bilateral C-view 2D Screening mammogram. Views obtained: bilateral craniocaudal and bilateral mediolateral oblique. Computer Aided Detection was performed. Mammogram Findings: The present examination has been compared to prior imaging studies performed at [facility] on 04/29/2021, 05/03/2022 and 05/19/2023. The breasts [...] compared to prior imaging studies performed at [facility] on 04/29/2021, 05/03/2022 and 05/19/2023. The breasts [...] Most Recently Relevant to Health Maintenance Insurance [facility] Advance Directives For more information, please contact: [phone] * Full Code (Latest Code Status on File) Date Activated Date Inactivated Comments 11/13/2023 7:39 PM 11/16/2023 4:56 PM * Full Code Date Activated Date Inactivated Comments 10/20/2022 2:02 PM 10/20/2022 8:58 PM Care Teams Integrated Logistics Support Manager Relationship Specialty Start Date End Date Jose Dahl MD [address] [place] [address] PCP - General Internal Medicine 11/29/22 Sam Gonsalez MD [address] [address] Referring Physician Cardiology 11/16/23
[2025-05-08] MEDS: SODIUM CHLORIDE 0.9% IV 1,000 ML 999 ML IV CONT ×3 (12:15→13:23)
[2025-05-08 12:28] LABS: Hematocrit 36.6 % (37.0-47.0); Hemoglobin 12.1 g/dL (12.0-15.0); Immature Granulocyte Percent A 1.6 % (0-0.5); Lymphocytes Absolute Auto 2.15 K/mm3 (0.9-3.2); Mean Corpuscular HGB Conc 33.1 g/dl (32-36); Mean Corpuscular Hemoglobin 35.4 pg (26-34); Mean Corpuscular Volume 107.0 fl (80-100); Nucleated Red Blood Cells Absolute Auto 0.000 K/mm3 (0.0-0.012); Nucleated Red Blood Cells Perc 0.0 % (0.0-0.2); Platelet Count Result 267 k/mm3 (150-375); Red Blood Count 3.42 M/mm3 (4.2-5.4); White Blood Count 13.4 K/mm3 (4.5-10.0)
[2025-05-08 12:38] LABS: Alanine Aminotransferase 16 U/L (6-35); Albumin Level 3.5 g/dL (3.5-5.1); Alkaline Phosphatase 69 U/L (38-126); Anion Gap 13 mmol/L (4-12); Aspartate Amino Transferase 27 U/L (14-36); Bilirubin,Total 1.1 mg/dL (0.2-1.3); Blood Urea Nitrogen 58 mg/dL (7-17); Calcium 9.2 mg/dL (8.4-10.2); Carbon Dioxide 17 mmol/L (22-30); Chloride 102 mmol/L (98-107); Estimated Glomerular Filt Rate 12; Glucose 125 mg/dL (65-110); Lipase 127 U/L (23-300); Magnesium 1.5 mg/dL (1.6-2.3); Potassium 4.9 mmol/L (3.4-5.0); Sodium 132 mmol/L (137-145); Total Protein 6.7 g/dL (6.3-8.2)
[2025-05-08 12:48] LABS: Macrocytosis 1+ (NORMAL); Schistocytes None Seen
[2025-05-08 12:49] LABS: Troponin I < 0.012 ng/mL (0.000-0.034)
[2025-05-08 12:55] LABS: Procalcitonin 0.8 ng/mL
--- NOTE | 2025-05-08 13:01 | ED_ITS ---
HPI - General Adult General Chief complaint: Weakness Stated complaint: possible dehydration Time Seen by Provider: 05/08/25 11:54 History of Present Illness HPI narrative: Patient is 64-year-old female who presents emergency department with chief complaint of feeling dehydrated patient reports that she recently treated with antibiotics for sore throat reports that she started having some diarrhea reports he has not really been eating and drinking the patient states she feels as though she is dehydrated. The patient reports that her sore throat has improved Related Data Allergies Allergy/AdvReac Type Severity Reaction Status Date / Time No Known Allergies Allergy Verified 05/08/25 11:44 Review of Systems 2 Review of Systems: A 10 system review of systems was completed on the patient and is negative except for what is stated in the HPI. Nursing and ancillary documentation was reviewed. ON LICENSE OF [facility] Past Medical History Medical History Rheumatoid arthritis Hypertension Surgical History Surgical History History of cholecystectomy Social History Social History Smoking status: Never smoker Exam 2 Narrative: GENERAL: Well-appearing, well-nourished, and in no acute distress. HEAD: Normocephalic, atraumatic. EYES: PERRLA and EOMI. ENT: Nares clear, no rhinorrhea or epistaxis. Mucous membranes moist. NECK: Supple. CHEST: Clear to auscultation. No respiratory distress. HEART: Regular rate and rhythm. No murmur heard. Normal peripheral pulses. ABDOMEN: Soft, nontender, nondistended, normal active bowel sounds. EXTREMITIES: Normal range of motion. No edema. SKIN: Warm, dry, no rash. NEURO: No focal deficits. Alert and oriented x3. PSYCH: Normal mood and affect. Course Vital Signs Vital signs: Vital Signs Temperature 36.6 C 05/08/25 11:41 Pulse Rate 107 H 05/08/25 11:41 Respiratory Rate 18 05/08/25 11:41 Blood Pressure 77/59 L 05/08/25 11:41 Pulse Oximetry 97 05/08/25 11:41 Oxygen Delivery Room Air 05/08/25 11:41 Temperature 36.6 C 05/08/25 11:41 Pulse Rate 99 05/08/25 13:00 Respiratory Rate 18 05/08/25 13:00 Blood Pressure 108/48 L 05/08/25 13:00 Pulse Oximetry 100 05/08/25 13:00 Oxygen Delivery Room Air 05/08/25 11:41 Medical Decision Making Vital Signs Vital Signs: Vital Signs Temperature 36.6 C 05/08/25 11:41 Pulse Rate 107 H 05/08/25 11:41 Respiratory Rate 18 05/08/25 11:41 Blood Pressure 77/59 L 05/08/25 11:41 Pulse Oximetry 97 05/08/25 11:41 Oxygen Delivery Room Air 05/08/25 11:41 Temperature 36.6 C 05/08/25 11:41 Pulse Rate 99 05/08/25 13:00 Respiratory Rate 18 05/08/25 13:00 Blood Pressure 108/48 L 05/08/25 13:00 Pulse Oximetry 100 05/08/25 13:00 Oxygen Delivery Room Air 05/08/25 11:41 Lab Data 05/08/25 12:15 05/08/25 12:15 Labs: Lab Results 05/08/25 05/08/25 Range/Units 12:15 13:22 WBC 13.4 H (4.5-10.0) K/mm3 RBC 3.42 L (4.2-5.4) M/mm3 Hgb 12.1 (12.0-15.0) g/dL Hct 36.6 L (37.0-47.0) % MCV 107.0 H (80-100) fl MCH 35.4 H (26-34) pg MCHC 33.1 (32-36) g/dl RDW 14.5 (11.5-14.5) % Plt Count 267 (150-375) k/mm3 MPV 9.0 (7.4-10.4) fl Immature Gran % (Auto) 1.6 H (0-0.5) % Neut % (Auto) 68.0 (45.5-73.1) % Lymph % (Auto) 16.0 L (18.3-44.2) % Campbell % (Auto) 11.8 H (2.6-8.5) % Eos % (Auto) 2.2 (0-4.4) % Baso % (Auto) 0.4 (0.2-1.2) % Lymph # (Auto) 2.15 (0.9-3.2) K/mm3 Campbell # (Auto) 1.6 H (0.1-0.6) K/mm3 Eos # (Auto) 0.3 (0-0.3) K/mm3 Baso # (Auto) 0.1 (0.0-0.1) K/mm3 Abs Immat Gran (auto) 0.22 H (0.00-0.031) K/mm3 Absolute Neuts (auto) 9.1 H (1.3-6.7) K/mm3 Absolute Nucleated RBC 0.000 (0.0-0.012) K/mm3 Band Neutrophils % Not Reportable Nucleated RBC % 0.0 (0.0-0.2) % Platelet Estimate Adequate (Adequate) Macrocytosis 1+ (NORMAL) Schistocytes None seen Sodium 132 L (137-145) mmol/L Potassium 4.9 (3.4-5.0) mmol/L Chloride 102 (98-107) mmol/L Carbon Dioxide 17 L (22-30) mmol/L Anion Gap 13 H (4-12) mmol/L BUN 58 H D (7-17) mg/dL Creatinine 3.77 H (0.7-1.0) mg/dL Estim Creat Clear Calc Not Reportable Estimated GFR 12 L (59 - ) Glucose 125 H (65-110) mg/dL Lactic Acid 1.7 (0.7-2.0) mmol/L Calcium 9.2 (8.4-10.2) mg/dL Magnesium 1.5 L (1.6-2.3) mg/dL Total Bilirubin 1.1 (0.2-1.3) mg/dL AST 27 (14-36) U/L ALT 16 (6-35) U/L Alkaline Phosphatase 69 (38-126) U/L Troponin I < 0.012 (0.000-0.034) ng/mL Total Protein 6.7 (6.3-8.2) g/dL Albumin 3.5 (3.5-5.1) g/dL Lipase 127 (23-300) U/L Procalcitonin 0.8 ng/mL Urine Color Pending Urine Appearance Pending Urine pH Pending Ur Specific [place] Pending Urine Protein Pending Urine Glucose (UA) Pending Urine Ketones Pending Ur Blood (Man) Pending Urine Nitrate Pending Urine Bilirubin Pending Urine Urobilinogen Pending Leukocyte Esterase Rfl Pending Influenza A (RT-PCR) Negative (Negative) Influenza B (RT-PCR) Negative (Negative) RSV (RT-PCR) Negative (Negative) SARS-CoV-2 RNA (RT-PCR) Negative (Negative) Discharge Plan Discharge Clinical Impression: Diarrhea, Acute kidney injury Patient Disposition: Still a Patient Condition: Stable Patient Language: [place] Prescriptions: No Action cyclobenzaprine 5 mg tablet 5 mg PO TID PRN (Reason: muscle spasm) Qty: 10 0RF cephalexin 500 mg capsule 500 mg PO Q12H 7 Days Qty: 14 0RF Follow-up/Referrals: Hesham,Jose August MD [Primary Care Provider] - Time of Disposition: 14:12
[2025-05-08 13:05] LABS: Influenza A QL RT-PCR Negative (Negative); Influenza B QL RT-PCR Negative (Negative); RSV RNA, RT-PCR Negative (Negative); SARS-CoV-2 RNA PCR Negative (Negative)
--- NOTE | 2025-05-08 13:15 | PC.NURSE ---
Pt. straight cath for urine sample. Lab states sample is insufficient amount. Pt. then able to produce a clean catch urine sample on the toilet. Urine sent down to lab with pt. label. Lab called by SAM Osorio to alert them that a 2nd sample has been tubed to them.
[2025-05-08] MEDS: MAGNESIUM SULF 1 GM/D5W 100 ML 1 GM/100 ML BAG IVPB (13:32)
[2025-05-08 14:16] LABS: Add Urine Microscopic? YES; Appearance Urine Turbid (Clear); Glucose Urine UA Negative (Negative); Leukocyte Esterase Ur 1+ LEU/UL (Negative); Need Manual Microscopic Reviewed; Nitrate Urine Negative (Negative); Non Pathogenic Casts >20; Specific Grav Ur 1.020 (1.001-1.035)
[2025-05-08] MEDS: SODIUM CHLORIDE 0.9% IV 1,000 ML 125 ML IV CONT ×2 (14:56→23:37)
[2025-05-08] MEDS: ACETAMINOPHEN 325 MG TABLET 650 MG PO (14:56)
--- NOTE | 2025-05-08 15:08 | PC.NURSE ---
This RN initiated confirming home med list. Pt. did not know dose and frequency of many. Pt. daughter bringing list of all meds to [facility].
--- NOTE | 2025-05-08 15:13 | PC.NURSE ---
Pt. states I'm hungry. Meal tray ordered to be delivered to bedside for pt.
--- NOTE | 2025-05-08 15:37 | P.HP_ITS ---
H&P: HPI History of Present Illness Date/Time: 05/08/25 15:37 Chief Complaint: Dehydration Narrative: 64-year-old female past medical history of hypertension rheumatoid arthritis presents the hospital with possible dehydration. She states that she had a sore throat was prescribed antibiotics and has been having frequent diarrhea since has not been able to eat or drink well. patient states that her throat feels better. She states that she has this take her antibiotics through Monday. She states that the diarrhea started right after to starting the antibiotics. Patient denies nausea vomiting or shor Lab work shows leukocytosis at 13.4, sodium 132 BUN 58, creatinine 3.77 with previous creatinine being 1.9, GFR 12 magnesium 1.5 urine is turbid 1+ leukocyte esterase many squamous cells 1+ bacteria. RSV, influenza A/B and COVID negative. Chest x-ray shows no acute process. C diff pending. Review of Systems Review of Systems: 12 systems were reviewed and are negativ e except for as per HPI. [facility] Past Medical History Medical History (Updated 05/08/25 @ 23:52 by Joselin Bynum APRN) Rheumatoid arthritis Hypertension Surgical History Surgical History History of cholecystectomy Social History Social History Smoking status: Never smoker Alcohol intake: former Substance use type: marijuana Do You Feel Safe in your Home?: Yes Lack of Transportation: YES Lack of Food: Never True Current Housing: I Have Housing Concerned About Future Housing: No Difficulty Paying Gas/Electric Bills: No Difficulty Paying for Meds: No Currently Unemployed: No Education: Grade School Difficulty w/ Childcare or Family Care: No Spiritual care concerns: No Meds Home Medications and Allergies Home Medications ?Medication ?Instructions ?Recorded ?Confirmed ?Type cephalexin 500 mg capsule 500 mg PO Q12H 7 days #14 caps 07/28/22 05/08/25 Rx cyclobenzaprine 5 mg tablet 5 mg PO TID PRN muscle spasm #10 07/28/22 05/08/25 Rx tabs abaloparatide (Tymlos) 3,120 mcg subcut HS 05/08/25 05/08/25 History allopurinol 100 mg tablet 100 mg PO DAILY 05/08/25 05/08/25 History amoxicillin 500 mg-potassium 1 tablet PO Q12H 05/08/25 05/08/25 History clavulanate 125 mg tablet atorvastatin 40 mg tablet 40 mg PO HS 05/08/25 05/08/25 History cholecalciferol (vitamin D3) 50 50 mcg PO DAILY 05/08/25 05/08/25 History mcg (2,000 unit) capsule dapagliflozin propanediol 5 mg 5 mg PO HS 05/08/25 05/08/25 History tablet (Farxiga) folic acid 1 mg tablet 1 mg PO BID 05/08/25 05/08/25 History furosemide 20 mg tablet 20 mg PO .COMPLEX 05/08/25 05/08/25 History hydrocodone 5 mg-acetaminophen 325 1 tablet PO PRN 05/08/25 05/08/25 History mg tablet lisinopril 40 mg tablet 40 mg PO DAILY 05/08/25 05/08/25 History metformin 500 mg tablet 500 mg PO QID 05/08/25 05/08/25 History methotrexate sodium 2.5 mg tablet 15 mg PO WEEKLY 05/08/25 05/08/25 History nortriptyline 25 mg capsule 25 mg PO HS 05/08/25 05/08/25 History sulindac 150 mg tablet mg PO 05/08/25 History Allergies Allergy/AdvReac Type Severity Reaction Status Date / Time No Known Allergies Allergy Verified 05/08/25 11:44 Vital Signs Vital Signs - 24 hr 05/08/25 11:41 05/08/25 13:00 05/08/25 14:57 Temperature 97.8 F Pulse Rate 107 H 99 95 Respiratory Rate 18 18 17 Blood Pressure 77/59 L 108/48 L 108/53 L Pulse Oximetry 97 100 100 Oxygen Delivery Room Air Exam Narrative: General: well appearing, appears stated age. HEENT: normocephalic, atraumatic. Mucous membranes moist. EOMI, PERRLA, bilateral sclera anicteric, no conjunctival injection. Neck supple without JVD, lymphadenopathy, or bruit. Respiratory: clear to ascultation bilaterally. No rales/rhonic/wheezes. Cardiovascular: Regular rate and rhythm, normal S1-S2 upon ascultation. No murmurs, rubs, or clicks. PMI is nondisplaced, capillary refill less than 3 second. Abdomen: Soft, round, no pulsatile masses, nondistended and nontender. No rebound, no guarding. No CVA tenderness, no hepatosplenomegaly. Bowel sounds present to all four quadrants. No high pitch or tinkling sounds, resonant to percussion. Extremities: No cyanosis, clubbing, . Pulses are palpable 2/2. Active ROM to all four extremities. Pedal edema Neuro: Alert and orientated x 4. PERRLA. Cranial nerves 2-12 intact without focal deficit. Skin: Warm, dry, and intact, without rash, erythema, or lesion. Psych: pleasant, cooperative, normal speech, normal affect, no hallucinations, no dysarthia H&P: Results Labs Labs: Short CBC 05/08/25 Range/Units 12:15 WBC 13.4 H (4.5-10.0) K/mm3 Hgb 12.1 (12.0-15.0) g/dL Hct 36.6 L (37.0-47.0) % Plt Count 267 (150-375) k/mm3 BMP 05/08/25 12:15 Sodium 132 L Potassium 4.9 Chloride 102 Carbon Dioxide 17 L BUN 58 H D Creatinine 3.77 H Glucose 125 H Calcium 9.2 Cardiac Enzymes 05/08/25 Range/Units 12:15 Troponin I < 0.012 (0.000-0.034) ng/mL Liver Function 05/08/25 Range/Units 12:15 Total Bilirubin 1.1 (0.2-1.3) mg/dL AST 27 (14-36) U/L ALT 16 (6-35) U/L Alkaline Phosphatase 69 (38-126) U/L Albumin 3.5 (3.5-5.1) g/dL Urine 05/08/25 Range/Units 13:22 Urine Color Yellow (Yellow) Urine Appearance Turbid H (Clear) Urine pH 5.0 (5.0-9.0) Ur Specific [place] 1.020 (1.001-1.035) Urine Protein Trace (Negative) mg/dL Urine Glucose (UA) Negative (Negative) mg/dL Assessment and Plan Assessment and plan (1) Diarrhea: Code(s): R19.7 - Diarrhea, unspecified Status: Acute Assessment and Plan: GI upset from antibiotics versus C diff recess other C diff pending (2) Acute kidney injury: Code(s): N17.9 - Acute kidney failure, unspecified Status: Acute Assessment and Plan: Likely due to acute dehydration from diarrhea and poor oral intake IVF for hydration hold home Lasix encourage p.o. intake BMP in the morning (3) Hypertension: Code(s): I10 - Essential (primary) hypertension Status: Acute Assessment and Plan: currently holding lisinopril due to EUNICE (4) Rheumatoid arthritis: Code(s): M06.9 - Rheumatoid arthritis, unspecified Status: Acute Assessment and Plan: currently being treated with narcotics okay to restart home meds (5) Diabetes: Code(s): E11.9 - Type 2 diabetes mellitus without complications Status: Acute Assessment and Plan: hold home metformin and Farxiga SSI Accu-Cheks a.c. HS Quality VTE Prophylaxis VTE prophylaxis: mechanical ordered and pharmacologic ordered Hospitalist MIPS Advance Care Plan I have confirmed that the patient's Advanced Care Plan is present, code status is documented, or surrogate decision maker is listed in patient medical record.: Yes Medication Reconciliation I have utilized all available resources to obtain, update and review the patients current medications (includes all prescriptions, OTC, herbals, cannabis, and nutritional supplements).: Yes
[2025-05-08] MEDS: ATORVASTATIN 40 MG TABLET PO (20:48)
[2025-05-08] MEDS: HYDROcodone/acetaminophen (*CRX) 5-325 MG TABLET 1 TAB PO (20:49)
[2025-05-08] MEDS: CYCLOBENZAPRINE HCL 5 MG TABLET PO (20:49)
[2025-05-08] MEDS: WATER FOR IRRIGATION, STERILE 1,000 ML BOTTLE 1000 ML (22:05)
[2025-05-09] VITALS (17 sets, daily range): BP systolic 96–140; BP diastolic 41–72; PULSE 73–118; RESP 18–24; TEMP 36.6–37.3; O2SAT 95–100
[2025-05-09] MEDS: NORTRIPTYLINE HCL 25 MG CAPSULE PO ×2 (02:28→20:19)
[2025-05-09] MEDS: CEPHALEXIN 500 MG CAPSULE PO ×3 (02:28→20:21)
[2025-05-09 04:49] LABS: Hematocrit 31.7 % (37.0-47.0); Hemoglobin 9.9 g/dL (12.0-15.0); Immature Granulocyte Percent A 1.1 % (0-0.5); Lymphocytes Absolute Auto 1.91 K/mm3 (0.9-3.2); Mean Corpuscular HGB Conc 31.2 g/dl (32-36); Mean Corpuscular Hemoglobin 34.6 pg (26-34); Mean Corpuscular Volume 110.8 fl (80-100); Nucleated Red Blood Cells Absolute Auto 0.000 K/mm3 (0.0-0.012); Nucleated Red Blood Cells Perc 0.0 % (0.0-0.2); Platelet Count Result 206 k/mm3 (150-375); Red Blood Count 2.86 M/mm3 (4.2-5.4); White Blood Count 10.2 K/mm3 (4.5-10.0)
[2025-05-09 05:24] LABS: Anisocytosis 1+; Burr Cells 1+; Macrocytosis 1+ (NORMAL); Schistocytes None Seen
[2025-05-09 05:27] LABS: Anion Gap 8 mmol/L (4-12); Blood Urea Nitrogen 41 mg/dL (7-17); Calcium 8.3 mg/dL (8.4-10.2); Carbon Dioxide 14 mmol/L (22-30); Chloride 112 mmol/L (98-107); Estimated Glomerular Filt Rate 22; Glucose 88 mg/dL (65-110); Magnesium 1.8 mg/dL (1.6-2.3); Potassium 4.7 mmol/L (3.4-5.0); Sodium 134 mmol/L (137-145)
[2025-05-09] MEDS: HYDROcodone/acetaminophen (*CRX) 5-325 MG TABLET 1 TAB PO ×3 (05:28→20:19)
[2025-05-09] MEDS: CYCLOBENZAPRINE HCL 5 MG TABLET PO ×3 (05:29→20:20)
[2025-05-09] MEDS: SODIUM CHLORIDE 0.9% IV 1,000 ML 125 ML IV CONT ×3 (07:46→23:54)
--- NOTE | 2025-05-09 15:40 | P.PNIM_ITS ---
Progress Note: A&P Assessment and Plan (1) Diarrhea: Code(s): R19.7 - Diarrhea, unspecified Status: Acute Assessment and Plan: GI upset from antibiotics versus C diff recess other C diff pending (2) Acute kidney injury: Code(s): N17.9 - Acute kidney failure, unspecified Status: Acute Assessment and Plan: Likely due to acute dehydration from diarrhea and poor oral intake IVF for hydration hold home Lasix encourage p.o. intake BMP in the morning L (3) Hypertension: Code(s): I10 - Essential (primary) hypertension Status: Acute Assessment and Plan: currently holding lisinopril due to EUNICE (4) Rheumatoid arthritis: Code(s): M06.9 - Rheumatoid arthritis, unspecified Status: Acute Assessment and Plan: currently being treated with narcotics okay to restart home meds (5) Diabetes: Code(s): E11.9 - Type 2 diabetes mellitus without complications Status: Acute Assessment and Plan: hold home metformin and Farxiga SSI Accu-Cheks a.c. HS Plan patient remains somnolent unable to provider detail ROS or history, suspect weakness and tired from diarrhea and dehydration, will gently hydrated the patient and monitor patient kidney function, will PT/OT evaluate the patient and further recommendation to follow. Subjective Date/time seen: 05/09/25 15:40 Interval history: Dehydration Narrative: 64-year-old female past medical history of hypertension rheumatoid arthritis presents the hospital with possible dehydration. She states that she had a sore throat was prescribed antibiotics and has been having frequent diarrhea since has not been able to eat or drink well. patient states that her throat feels better. She states that she has this take her antibiotics through Monday. She states that the diarrhea started right after to starting the antibiotics. Patient denies nausea vomiting or shor Lab work shows leukocytosis at 13.4, sodium 132 BUN 58, creatinine 3.77 with previous creatinine being 1.9, GFR 12 magnesium 1.5 urine is turbid 1+ leukocyte esterase many squamous cells 1+ bacteria. RSV, influenza A/B and COVID negative. Chest x-ray shows no acute process. C diff pending. patient remains somnolent unable to provider detail ROS or history, suspect weakness and tired from diarrhea and dehydration, will gently hydrated the patient and monitor patient kidney function, will PT/OT evaluate the patient and further recommendation to follow. Review of Systems Review of Systems: 12 systems were reviewed and are negativ e except for as per HPI. Exam Narrative: Morbidly obese Patient is comfortable, NAD HEENT: eyes are clear and none icteric LUNGS:CTA HEART: RR S1S2 ABD: BS+, Soft and nontender Lower extremities: no edema SKIN: nonjaundiced Neuro: grossly intact. Objective Data Vital Signs Vital Signs: Vital Signs - 24 hr 05/08/25 16:48 05/08/25 17:02 05/08/25 18:00 Temperature Pulse Rate 93 95 96 Respiratory Rate 20 14 Blood Pressure 101/58 L 124/86 Pulse Oximetry 100 97 05/08/25 18:00 05/08/25 20:00 05/08/25 20:00 Temperature 36.6 C 36.6 C Pulse Rate 95 103 H 96 Respiratory Rate 22 H 22 H Blood Pressure 111/46 L 97/31 L Pulse Oximetry 100 98 05/08/25 22:00 05/08/25 22:20 05/09/25 00:00 Temperature 36.6 C Pulse Rate 106 H 70 109 H Respiratory Rate 22 H Blood Pressure 96/41 L Pulse Oximetry 95 98 05/09/25 00:00 05/09/25 02:00 05/09/25 04:00 Temperature 36.6 C Pulse Rate 111 H 108 H 109 H Respiratory Rate 22 H Blood Pressure 103/41 L Pulse Oximetry 97 05/09/25 04:00 05/09/25 06:00 05/09/25 07:51 Temperature 37.3 C Pulse Rate 108 H 118 H 102 H Respiratory Rate 24 H Blood Pressure 116/58 L Pulse Oximetry 99 05/09/25 08:00 05/09/25 10:00 05/09/25 11:58 Temperature 36.8 C Pulse Rate 101 H 97 94 Respiratory Rate 21 H Blood Pressure 124/61 Pulse Oximetry 99 05/09/25 12:00 05/09/25 14:00 Temperature Pulse Rate 92 97 Respiratory Rate Blood Pressure Pulse Oximetry Intake/Output Intake/Output: Intake & Output 05/06/25 05/07/25 05/08/25 05/09/25 23:59 23:59 23:59 23:59 Intake Total 4200 1480 Output Total 2 800 Balance 4198 680 Meds/Results Medications: Active Medications Generic Name Dose Route Start Last Admin Trade Name Freq PRN Reason Stop Dose Admin Acetaminophen 650 mg 05/08/25 14:12 05/08/25 14:56 Acetaminophen 325 Mg Tablet PO 650 mg Q4H PRN Administration Mild Pain (1-3) or Fever Hydrocodone Bitart/Acetaminophen 1 tab 05/08/25 20:27 05/09/25 13:16 Hydrocodone/Acetaminophen (*Crx) 5-325 Mg Tablet PO 1 tab Q6H PRN Administration PAIN RATED 4-6 Amoxicillin/Clavulanate Potassium 1 tablet 05/08/25 23:50 05/09/25 11:29 Amoxicillin/Clavulanate K 500-125 Mg Tab PO 05/13/25 21:01 1 tablet Q12HR GREG Administration Atorvastatin Calcium 40 mg 05/08/25 21:00 05/08/25 20:48 Atorvastatin 40 Mg Tablet PO 40 mg HS GREG Administration Cephalexin HCl 500 mg 05/08/25 23:50 05/09/25 11:29 Cephalexin 500 Mg Capsule PO 05/11/25 21:00 500 mg Q12HR GREG Administration Cyclobenzaprine HCl 5 mg 05/08/25 19:26 05/09/25 13:17 Cyclobenzaprine Hcl 5 Mg Tablet PO 5 mg TID PRN Administration muscle spasm Dextrose 12.5 gm 05/08/25 23:51 Dextrose 50% 25 Gm/50 Ml Syringe IV PUSH PRN PRN Hypoglycemia Protocol Glucagon 1 mg 05/08/25 23:51 Glucagon For Inj 1 Mg Vial IM PRN PRN Hypoglycemia Protocol Glucose 15 gm 05/08/25 23:51 Glucose Oral Gel 15 Gm Of Glucse In 37.5 Gm Tube PO PRN PRN Hypoglycemia Protocol Heparin Sodium (Porcine) 5,000 units 05/09/25 09:00 05/09/25 11:29 Heparin Sodium 5,000 Units/Ml Vial SUB-Q 5,000 units Q12HR GREG Administration Sodium Chloride 1,000 mls @ 125 mls/hr 05/08/25 14:15 05/09/25 07:46 Normal Saline Iv IV CONT 125 mls/hr .Q8H GREG Administration Dextrose 1,000 mls @ 100 mls/hr 05/08/25 23:51 Dextrose 5% 1,000 Ml IVPB PRN PRN Hypoglycemia Protocol Insulin Aspart 2 - 5 units 05/09/25 08:00 05/09/25 11:40 Insulin Aspart (*Bkc) 100 Units/Ml SUB-Q Not Given TIDWM [facility] Protocol Insulin Aspart 1 - 2 units 05/09/25 21:00 Insulin Aspart (*Bkc) 100 Units/Ml SUB-Q HS [facility] Protocol Nortriptyline HCl 25 mg 05/08/25 23:55 05/09/25 02:28 Nortriptyline Hcl 25 Mg Capsule PO 25 mg HS GREG Administration Ondansetron HCl 4 mg 05/08/25 14:12 Ondansetron Inj 4 Mg/2 Ml Vial IV PUSH Q4H PRN Nausea Radiology Results: ITS Impressions Chest X-Ray 05/08/25 13:43 IMPRESSION: 1. No acute cardiopulmonary disease. Labs Labs: Laboratory Results - last 24 hr 05/09/25 05/09/25 05/09/25 04:14 07:11 11:11 WBC 10.2 H RBC 2.86 L Hgb 9.9 L Hct 31.7 L MCV 110.8 H MCH 34.6 H MCHC 31.2 L RDW 14.3 Plt Count 206 MPV 8.9 Immature Gran % (Auto) 1.1 H Neut % (Auto) 64.9 Lymph % (Auto) 18.8 [place] % (Auto) 11.7 H Eos % (Auto) 3.1 Baso % (Auto) 0.4 Lymph # (Auto) 1.91 [place] # (Auto) 1.2 H Eos # (Auto) 0.3 Baso # (Auto) 0.0 Abs Immat Gran (auto) 0.11 H Absolute Neuts (auto) 6.6 Absolute Nucleated RBC 0.000 Band Neutrophils % Not Reportable Nucleated RBC % 0.0 Platelet Estimate Adequate Anisocytosis 1+ Macrocytosis 1+ [place] Cells 1+ Schistocytes None seen Sodium 134 L Potassium 4.7 Chloride 112 H Carbon Dioxide 14 L Anion Gap 8 BUN 41 H D Creatinine 2.23 H Estim Creat Clear Calc Not Reportable Estimated GFR 22 L Glucose 88 POC Capillary Glucose 86 79 Calcium 8.3 L Phosphorus 3.5 Magnesium 1.8 05/09/25 15:28 WBC RBC Hgb Hct MCV MCH MCHC RDW Plt Count MPV Immature Gran % (Auto) Neut % (Auto) Lymph % (Auto) [place] % (Auto) Eos % (Auto) Baso % (Auto) Lymph # (Auto) [place] # (Auto) Eos # (Auto) Baso # (Auto) Abs Immat Gran (auto) Absolute Neuts (auto) Absolute Nucleated RBC Band Neutrophils % Nucleated RBC % Platelet Estimate Anisocytosis Macrocytosis Richardson Cells Schistocytes Sodium Potassium Chloride Carbon Dioxide Anion Gap BUN Creatinine Estim Creat Clear Calc Estimated GFR Glucose POC Capillary Glucose 104 Calcium Phosphorus Magnesium Quality VTE Prophylaxis VTE prophylaxis: mechanical ordered and pharmacologic ordered
[2025-05-09] MEDS: ATORVASTATIN 40 MG TABLET PO (20:20)
--- NOTE | 2025-05-09 22:10 | PC.NURSE ---
This patient, Bettina King, was transferred to [[id number] ] on 05/09/25 at 2210. Personal belongings sent with patient. Report given to [Yoel silverio ]. Appropriate documentation sent with patient.
--- NOTE | 2025-05-09 22:49 | ADMGEN ---
This patient, Bettina King, was admitted to [facility] Surg Room 329-01 from IMU downgrade. Patient/family oriented to hospital policies and general routines including ID bracelet, bed and alarms, visiting hours, pain management, procedures, bathroom and other care routines, personal items, smoking policy, room service/diet, and visiting hours. Information on how to activate the Rapid Response Team has been discussed. Patient/Family are encouraged to report perceived risks to care and to ask questions if they do not understand what they are told or what they should do.
[2025-05-10 02:53] VITALS: PULSE 69; O2SAT 96
[2025-05-10 06:00] VITALS: BP 140/73; PULSE 90; RESP 18; TEMP 36.9; O2SAT 98
[2025-05-10 06:48] LABS: Anion Gap 8 mmol/L (4-12); Blood Urea Nitrogen 25 mg/dL (7-17); Calcium 8.5 mg/dL (8.4-10.2); Carbon Dioxide 13 mmol/L (22-30); Chloride 117 mmol/L (98-107); Estimated Glomerular Filt Rate 36; Glucose 96 mg/dL (65-110); Magnesium 1.6 mg/dL (1.6-2.3); Potassium 4.6 mmol/L (3.4-5.0); Sodium 138 mmol/L (137-145)
[2025-05-10 08:57] LABS: Hematocrit 29.5 % (37.0-47.0); Hemoglobin 9.1 g/dL (12.0-15.0); Mean Corpuscular HGB Conc 30.8 g/dl (32-36); Mean Corpuscular Hemoglobin 34.5 pg (26-34); Mean Corpuscular Volume 111.7 fl (80-100); Platelet Count Result 207 k/mm3 (150-375); Red Blood Count 2.64 M/mm3 (4.2-5.4); White Blood Count 7.3 K/mm3 (4.5-10.0)
[2025-05-10] MEDS: CEPHALEXIN 500 MG CAPSULE PO ×2 (09:53→21:41)
[2025-05-10] MEDS: SODIUM BICARBONATE TAB 650 MG TABLET PO ×3 (09:53→17:33)
--- NOTE | 2025-05-10 13:22 | P.PNIM_ITS ---
Progress Note: A&P Assessment and Plan (1) Diarrhea: Code(s): R19.7 - Diarrhea, unspecified Status: Acute Assessment and Plan: GI upset from antibiotics versus C diff recess other C diff pending (2) Acute kidney injury: Code(s): N17.9 - Acute kidney failure, unspecified Status: Acute Assessment and Plan: Likely due to acute dehydration from diarrhea and poor oral intake IVF for hydration hold home Lasix encourage p.o. intake BMP in the morning L (3) Hypertension: Code(s): I10 - Essential (primary) hypertension Status: Acute Assessment and Plan: currently holding lisinopril due to EUNICE (4) Rheumatoid arthritis: Code(s): M06.9 - Rheumatoid arthritis, unspecified Status: Acute Assessment and Plan: currently being treated with narcotics okay to restart home meds (5) Diabetes: Code(s): E11.9 - Type 2 diabetes mellitus without complications Status: Acute Assessment and Plan: hold home metformin and Farxiga SSI Accu-Cheks a.c. HS Plan Today patient is more awake and alert still complaints of weakness and tired from diarrhea and dehydration, patient has developed metabolic acidosis, will treat with bicard PO and monitor patient kidney function, will PT/OT evaluate the patient and further recommendation to follow. Subjective Date/time seen: 05/10/25 13:22 Interval history: Dehydration Narrative: 64-year-old female past medical history of hypertension rheumatoid arthritis presents the hospital with possible dehydration. She states that she had a sore throat was prescribed antibiotics and has been having frequent diarrhea since has not been able to eat or drink well. patient states that her throat feels better. She states that she has this take her antibiotics through Monday. She states that the diarrhea started right after to starting the antibiotics. Patient denies nausea vomiting or shor Lab work shows leukocytosis at 13.4, sodium 132 BUN 58, creatinine 3.77 with previous creatinine being 1.9, GFR 12 magnesium 1.5 urine is turbid 1+ leukocyte esterase many squamous cells 1+ bacteria. RSV, influenza A/B and COVID negative. Chest x-ray shows no acute process. C diff pending. Today patient is more awake and alert still complaints of weakness and tired from diarrhea and dehydration, patient has developed metabolic acidosis, will treat with bicard PO and monitor patient kidney function, will PT/OT evaluate the patient and further recommendation to follow. Review of Systems Review of Systems: 12 systems were reviewed and are negativ e except for as per HPI. Exam Narrative: Morbidly obese Patient is comfortable, NAD HEENT: eyes are clear and none icteric LUNGS:CTA HEART: RR S1S2 ABD: BS+, Soft and nontender Lower extremities: no edema SKIN: nonjaundiced Neuro: grossly intact. Objective Data Vital Signs Vital Signs: Vital Signs - 24 hr 05/09/25 14:00 05/09/25 15:59 05/09/25 16:00 Temperature 36.7 C Pulse Rate 97 105 H 96 Respiratory Rate 22 H Blood Pressure 140/72 Pulse Oximetry 100 Oxygen Delivery Fraction of Inspired Oxygen 05/09/25 21:03 05/09/25 22:15 05/09/25 22:18 Temperature Pulse Rate 92 Respiratory Rate 22 H Blood Pressure Pulse Oximetry 100 98 98 Oxygen Delivery Room Air CPAP CPAP Fraction of Inspired Oxygen 05/09/25 22:43 05/09/25 22:43 05/09/25 23:25 Temperature 36.6 C Pulse Rate 97 73 Respiratory Rate 18 Blood Pressure 129/48 L Pulse Oximetry 100 98 95 Oxygen Delivery Room Air Fraction of Inspired Oxygen 05/10/25 02:53 05/10/25 06:00 05/10/25 08:00 Temperature 36.9 C Pulse Rate 69 90 Respiratory Rate 18 Blood Pressure 140/73 Pulse Oximetry 96 98 Oxygen Delivery Room Air Fraction of Inspired Oxygen Intake/Output Intake/Output: Intake & Output 05/07/25 05/08/25 05/09/25 05/10/25 23:59 23:59 23:59 23:59 Intake Total 4200 4217.9 610 Output Total 2 1150 Balance 4198 3067.9 610 Meds/Results Medications: Active Medications Generic Name Dose Route Start Last Admin Trade Name Freq PRN Reason Stop Dose Admin Acetaminophen 650 mg 05/08/25 14:12 05/08/25 14:56 Acetaminophen 325 Mg Tablet PO 650 mg Q4H PRN Administration Mild Pain (1-3) or Fever Hydrocodone Bitart/Acetaminophen 1 tab 05/08/25 20:27 05/09/25 20:19 Hydrocodone/Acetaminophen (*Crx) 5-325 Mg Tablet PO 1 tab Q6H PRN Administration PAIN RATED 4-6 Amoxicillin/Clavulanate Potassium 1 tablet 05/08/25 23:50 05/10/25 09:53 Amoxicillin/Clavulanate K 500-125 Mg Tab PO 05/13/25 21:01 1 tablet Q12HR GREG Administration Atorvastatin Calcium 40 mg 05/08/25 21:00 05/09/25 20:20 Atorvastatin 40 Mg Tablet PO 40 mg HS GREG Administration Cephalexin HCl 500 mg 05/08/25 23:50 05/10/25 09:53 Cephalexin 500 Mg Capsule PO 05/11/25 21:00 500 mg Q12HR GREG Administration Cyclobenzaprine HCl 5 mg 05/08/25 19:26 05/09/25 20:20 Cyclobenzaprine Hcl 5 Mg Tablet PO 5 mg TID PRN Administration muscle spasm Dextrose 12.5 gm 05/08/25 23:51 Dextrose 50% 25 Gm/50 Ml Syringe IV PUSH PRN PRN Hypoglycemia Protocol Glucagon 1 mg 05/08/25 23:51 Glucagon For Inj 1 Mg Vial IM PRN PRN Hypoglycemia Protocol Glucose 15 gm 05/08/25 23:51 Glucose Oral Gel 15 Gm Of Glucse In 37.5 Gm Tube PO PRN PRN Hypoglycemia Protocol Heparin Sodium (Porcine) 5,000 units 05/09/25 09:00 05/10/25 09:53 Heparin Sodium 5,000 Units/Ml Vial SUB-Q 5,000 units Q12HR GREG Administration Dextrose 1,000 mls @ 100 mls/hr 05/08/25 23:51 Dextrose 5% 1,000 Ml IVPB PRN PRN Hypoglycemia Protocol Insulin Aspart 2 - 5 units 05/09/25 08:00 05/10/25 12:02 Insulin Aspart (*Bkc) 100 Units/Ml SUB-Q Not Given TIDWM GREG Protocol Insulin Aspart 1 - 2 units 05/09/25 21:00 05/09/25 21:00 Insulin Aspart (*Bkc) 100 Units/Ml SUB-Q Not Given HS GREG Protocol Nortriptyline HCl 25 mg 05/08/25 23:55 05/09/25 20:19 Nortriptyline Hcl 25 Mg Capsule PO 25 mg HS GREG Administration Ondansetron HCl 4 mg 05/08/25 14:12 Ondansetron Inj 4 Mg/2 Ml Vial IV PUSH Q4H PRN Nausea Sodium Bicarbonate 650 mg 05/10/25 09:15 05/10/25 12:40 Sodium Bicarbonate Tab 650 Mg Tablet PO 650 mg TID GREG Administration Radiology Results: ITS Impressions Chest X-Ray 05/08/25 13:43 IMPRESSION: 1. No acute cardiopulmonary disease. Labs Labs: Laboratory Results - last 24 hr 05/09/25 05/09/25 05/10/25 15:28 20:46 05:45 WBC 7.3 RBC 2.64 L Hgb 9.1 L Hct 29.5 L MCV 111.7 H MCH 34.5 H MCHC 30.8 L RDW 14.4 Plt Count 207 MPV 9.1 Sodium Potassium Chloride Carbon Dioxide Anion Gap BUN Creatinine Estim Creat Clear Calc Estimated GFR Glucose POC Capillary Glucose 104 109 H Calcium Magnesium 05/10/25 05/10/25 05/10/25 05:49 07:46 11:40 WBC RBC Hgb Hct MCV MCH MCHC RDW Plt Count MPV Sodium 138 Potassium 4.6 Chloride 117 H Carbon Dioxide 13 L Anion Gap 8 BUN 25 H D Creatinine 1.47 H Estim Creat Clear Calc Not Reportable Estimated GFR 36 L Glucose 96 POC Capillary Glucose 91 146 H Calcium 8.5 Magnesium 1.6 Quality VTE Prophylaxis VTE prophylaxis: mechanical ordered and pharmacologic ordered
[2025-05-10 14:00] VITALS: BP 121/63; PULSE 99; RESP 18; TEMP 36.6; O2SAT 100
[2025-05-10 21:40] VITALS: O2SAT 96
[2025-05-10] MEDS: ATORVASTATIN 40 MG TABLET PO (21:40)
[2025-05-10] MEDS: NORTRIPTYLINE HCL 25 MG CAPSULE PO (21:41)
[2025-05-10 22:00] VITALS: BP 128/64; PULSE 99; RESP 18; TEMP 36.4; O2SAT 100
[2025-05-10 23:00] VITALS: PULSE 69; O2SAT 96
[2025-05-11 06:00] VITALS: BP 125/62; PULSE 91; RESP 18; TEMP 36.5; O2SAT 98
[2025-05-11 06:10] LABS: Hematocrit 29.4 % (37.0-47.0); Hemoglobin 9.3 g/dL (12.0-15.0); Mean Corpuscular HGB Conc 31.6 g/dl (32-36); Mean Corpuscular Hemoglobin 34.3 pg (26-34); Mean Corpuscular Volume 108.5 fl (80-100); Platelet Count Result 221 k/mm3 (150-375); Red Blood Count 2.71 M/mm3 (4.2-5.4); White Blood Count 7.9 K/mm3 (4.5-10.0)
[2025-05-11 06:28] LABS: Anion Gap 6 mmol/L (4-12); Blood Urea Nitrogen 19 mg/dL (7-17); Calcium 9.3 mg/dL (8.4-10.2); Carbon Dioxide 17 mmol/L (22-30); Chloride 115 mmol/L (98-107); Estimated Glomerular Filt Rate 37; Glucose 102 mg/dL (65-110); Magnesium 1.4 mg/dL (1.6-2.3); Potassium 4.8 mmol/L (3.4-5.0); Sodium 138 mmol/L (137-145)
[2025-05-11] MEDS: MAGNESIUM SULF 2 GM/WATER 50ML 2 GM/50 ML BAG IVPB (09:06)
[2025-05-11] MEDS: CEPHALEXIN 500 MG CAPSULE PO ×2 (09:07→21:39)
[2025-05-11] MEDS: SODIUM BICARBONATE TAB 650 MG TABLET PO ×3 (09:07→17:01)
--- NOTE | 2025-05-11 12:37 | P.PNIM_ITS ---
Progress Note: A&P Assessment and Plan (1) Diarrhea: Code(s): R19.7 - Diarrhea, unspecified Status: Acute Assessment and Plan: GI upset from antibiotics versus C diff recess other C diff pending (2) Acute kidney injury: Code(s): N17.9 - Acute kidney failure, unspecified Status: Acute Assessment and Plan: Likely due to acute dehydration from diarrhea and poor oral intake IVF for hydration hold home Lasix encourage p.o. intake BMP in the morning L (3) Hypertension: Code(s): I10 - Essential (primary) hypertension Status: Acute Assessment and Plan: currently holding lisinopril due to EUNICE (4) Rheumatoid arthritis: Code(s): M06.9 - Rheumatoid arthritis, unspecified Status: Acute Assessment and Plan: currently being treated with narcotics okay to restart home meds (5) Diabetes: Code(s): E11.9 - Type 2 diabetes mellitus without complications Status: Acute Assessment and Plan: hold home metformin and Farxiga SSI Accu-Cheks a.c. HS Plan Today patient is more awake and alert still complaints of weakness and tired from diarrhea and dehydration, patient has developed metabolic acidosis, started on bicard PO and IVF, monitor patient kidney function, will PT/OT evaluate the patient and further recommendation to follow. Subjective Date/time seen: 05/11/25 12:37 Interval history: Dehydration Narrative: 64-year-old female past medical history of hypertension rheumatoid arthritis presents the hospital with possible dehydration. She states that she had a sore throat was prescribed antibiotics and has been having frequent diarrhea since has not been able to eat or drink well. patient states that her throat feels better. She states that she has this take her antibiotics through Monday. She states that the diarrhea started right after to starting the antibiotics. Patient denies nausea vomiting or shor Lab work shows leukocytosis at 13.4, sodium 132 BUN 58, creatinine 3.77 with previous creatinine being 1.9, GFR 12 magnesium 1.5 urine is turbid 1+ leukocyte esterase many squamous cells 1+ bacteria. RSV, influenza A/B and COVID negative. Chest x-ray shows no acute process. C diff pending. Today patient is more awake and alert still complaints of weakness and tired from diarrhea and dehydration, patient has developed metabolic acidosis, started on bicard PO and IVF, monitor patient kidney function, will PT/OT evaluate the patient and further recommendation to follow. Review of Systems Review of Systems: 12 systems were reviewed and are negativ e except for as per HPI. Exam Narrative: Morbidly obese Patient is comfortable, NAD HEENT: eyes are clear and none icteric LUNGS:CTA HEART: RR S1S2 ABD: BS+, Soft and nontender Lower extremities: no edema SKIN: nonjaundiced Neuro: grossly intact. Objective Data Vital Signs Vital Signs: Vital Signs - 24 hr 05/10/25 14:00 05/10/25 21:40 05/10/25 22:00 Temperature 36.6 C 36.4 C Pulse Rate 99 99 Respiratory Rate 18 18 Blood Pressure 121/63 128/64 Pulse Oximetry 100 96 100 Oxygen Delivery CPAP 05/10/25 23:00 05/11/25 06:00 05/11/25 08:00 Temperature 36.5 C Pulse Rate 69 91 Respiratory Rate 18 Blood Pressure 125/62 Pulse Oximetry 96 98 Oxygen Delivery Room Air Intake/Output Intake/Output: Intake & Output 05/08/25 05/09/25 05/10/25 05/11/25 23:59 23:59 23:59 23:59 Intake Total 4200 4217.9 2350 850 Output Total 2 1150 Balance 4198 3067.9 2350 850 Meds/Results Medications: Active Medications Generic Name Dose Route Start Last Admin Trade Name Edil PRN Reason Stop Dose Admin Acetaminophen 650 mg 05/08/25 14:12 05/08/25 14:56 Acetaminophen 325 Mg Tablet PO 650 mg Q4H PRN Administration Mild Pain (1-3) or Fever Hydrocodone Bitart/Acetaminophen 1 tab 05/08/25 20:27 05/09/25 20:19 Hydrocodone/Acetaminophen (*Crx) 5-325 Mg Tablet PO 1 tab Q6H PRN Administration PAIN RATED 4-6 Amoxicillin/Clavulanate Potassium 1 tablet 05/08/25 23:50 05/11/25 09:07 Amoxicillin/Clavulanate K 500-125 Mg Tab PO 05/13/25 21:01 1 tablet Q12HR GREG Administration Atorvastatin Calcium 40 mg 05/08/25 21:00 05/10/25 21:40 Atorvastatin 40 Mg Tablet PO 40 mg HS GREG Administration Cephalexin HCl 500 mg 05/08/25 23:50 05/11/25 09:07 Cephalexin 500 Mg Capsule PO 05/11/25 21:00 500 mg Q12HR GREG Administration Cyclobenzaprine HCl 5 mg 05/08/25 19:26 05/09/25 20:20 Cyclobenzaprine Hcl 5 Mg Tablet PO 5 mg TID PRN Administration muscle spasm Dextrose 12.5 gm 05/08/25 23:51 Dextrose 50% 25 Gm/50 Ml Syringe IV PUSH PRN PRN Hypoglycemia Protocol Glucagon 1 mg 05/08/25 23:51 Glucagon For Inj 1 Mg Vial IM PRN PRN Hypoglycemia Protocol Glucose 15 gm 05/08/25 23:51 Glucose Oral Gel 15 Gm Of Glucse In 37.5 Gm Tube PO PRN PRN Hypoglycemia Protocol Heparin Sodium (Porcine) 5,000 units 05/09/25 09:00 05/11/25 09:07 Heparin Sodium 5,000 Units/Ml Vial SUB-Q 5,000 units Q12HR GREG Administration Dextrose 1,000 mls @ 100 mls/hr 05/08/25 23:51 Dextrose 5% 1,000 Ml IVPB PRN PRN Hypoglycemia Protocol Nortriptyline HCl 25 mg 05/08/25 23:55 05/10/25 21:41 Nortriptyline Hcl 25 Mg Capsule PO 25 mg HS GREG Administration Ondansetron HCl 4 mg 05/08/25 14:12 Ondansetron Inj 4 Mg/2 Ml Vial IV PUSH Q4H PRN Nausea Sodium Bicarbonate 650 mg 05/10/25 09:15 05/11/25 12:05 Sodium Bicarbonate Tab 650 Mg Tablet PO 650 mg TID GREG Administration Radiology Results: ITS Impressions Chest X-Ray 05/08/25 13:43 IMPRESSION: 1. No acute cardiopulmonary disease. Labs Labs: Laboratory Results - last 24 hr 05/10/25 05/10/25 05/11/25 16:58 20:49 05:56 WBC 7.9 RBC 2.71 L Hgb 9.3 L Hct 29.4 L MCV 108.5 H MCH 34.3 H MCHC 31.6 L RDW 14.0 Plt Count 221 MPV 8.5 Sodium 138 Potassium 4.8 Chloride 115 H Carbon Dioxide 17 L Anion Gap 6 BUN 19 H Creatinine 1.44 H Estim Creat Clear Calc Not Reportable Estimated GFR 37 L Glucose 102 POC Capillary Glucose 93 93 Calcium 9.3 Magnesium 1.4 L Quality VTE Prophylaxis VTE prophylaxis: mechanical ordered and pharmacologic ordered
[2025-05-11 14:00] VITALS: BP 150/90; PULSE 99; RESP 18; TEMP 36.2; O2SAT 97
[2025-05-11 20:00] VITALS: PULSE 94; RESP 18; O2SAT 99
[2025-05-11 21:29] VITALS: BP 122/47; PULSE 94; RESP 18; TEMP 36.5; O2SAT 99
[2025-05-11] MEDS: ATORVASTATIN 40 MG TABLET PO (21:40)
[2025-05-11] MEDS: NORTRIPTYLINE HCL 25 MG CAPSULE PO (21:40)
[2025-05-11 23:00] VITALS: PULSE 71; O2SAT 96
[2025-05-12 06:00] VITALS: BP 137/72; PULSE 107; RESP 18; TEMP 36.5; O2SAT 96
[2025-05-12 06:14] LABS: Hematocrit 30.6 % (37.0-47.0); Hemoglobin 9.7 g/dL (12.0-15.0); Mean Corpuscular HGB Conc 31.7 g/dl (32-36); Mean Corpuscular Hemoglobin 34.4 pg (26-34); Mean Corpuscular Volume 108.5 fl (80-100); Platelet Count Result 236 k/mm3 (150-375); Red Blood Count 2.82 M/mm3 (4.2-5.4); White Blood Count 7.5 K/mm3 (4.5-10.0)
[2025-05-12 06:25] LABS: Anion Gap 6 mmol/L (4-12); Blood Urea Nitrogen 18 mg/dL (7-17); Calcium 9.4 mg/dL (8.4-10.2); Carbon Dioxide 21 mmol/L (22-30); Chloride 112 mmol/L (98-107); Estimated Glomerular Filt Rate 39; Glucose 113 mg/dL (65-110); Magnesium 1.4 mg/dL (1.6-2.3); Potassium 4.6 mmol/L (3.4-5.0); Sodium 139 mmol/L (137-145)
[2025-05-12] MEDS: SODIUM BICARBONATE TAB 650 MG TABLET PO ×2 (08:40→12:15)
[2025-05-12] MEDS: MAGNESIUM SULF 2 GM/WATER 50ML 2 GM/50 ML BAG IVPB (10:26)
--- NOTE | 2025-05-12 13:17 | P.DS_ITS ---
DS: Admitting Diagnosis Discharge Date 05/12/25 Admitting Diagnosis Dehydration DS: Discharge Diagnosis Discharge Diagnosis (1) Diarrhea: Code(s): R19.7 - Diarrhea, unspecified Status: Acute Assessment and Plan: GI upset from antibiotics versus C diff recess other C diff pending (2) Acute kidney injury: Code(s): N17.9 - Acute kidney failure, unspecified Status: Acute Assessment and Plan: Likely due to acute dehydration from diarrhea and poor oral intake IVF for hydration hold home Lasix encourage p.o. intake BMP in the morning (3) Hypertension: Code(s): I10 - Essential (primary) hypertension Status: Acute Assessment and Plan: currently holding lisinopril due to EUNICE (4) Rheumatoid arthritis: Code(s): M06.9 - Rheumatoid arthritis, unspecified Status: Acute Assessment and Plan: currently being treated with narcotics okay to restart home meds (5) Diabetes: Code(s): E11.9 - Type 2 diabetes mellitus without complications Status: Acute Assessment and Plan: hold home metformin and Farxiga SSI Accu-Cheks a.c. HS Plan Today patient is more awake and alert still complaints of weakness and tired from diarrhea and dehydration, patient has developed metabolic acidosis, started on bicard PO and IVF, monitor patient kidney function, will PT/OT evaluate the patient and further recommendation to follow. DS: Summary Hospital Course Hospital Course: Today patient is more awake and alert still complaints of weakness and tired from diarrhea and dehydration, patient has developed metabolic acidosis, started on bicard PO and IVF, monitor patient kidney function, will PT/OT evaluate the patient and further recommendation to follow. patient symptoms and metabolic acidosis is improving, patient is clinically stable, will discharge today. Time Spent with Patient Time attestation: Total time spent providing and/or coordinating discharge services: Exam Narrative: Morbidly obese Patient is comfortable, NAD HEENT: eyes are clear and none icteric LUNGS:CTA HEART: RR S1S2 ABD: BS+, Soft and nontender Lower extremities: no edema SKIN: nonjaundiced Neuro: grossly intact. DS: Data Data Completed and Pending Labs on day of discharge: Labs from last 24 hours 05/12/25 05:56 WBC 7.5 RBC 2.82 L Hgb 9.7 L Hct 30.6 L MCV 108.5 H MCH 34.4 H MCHC 31.7 L RDW 14.0 Plt Count 236 MPV 8.6 Sodium 139 Potassium 4.6 Chloride 112 H Carbon Dioxide 21 L Anion Gap 6 BUN 18 H Creatinine 1.35 H Estim Creat Clear Calc Not Reportable Estimated GFR 39 L Glucose 113 H Calcium 9.4 Magnesium 1.4 L Preliminary micro results at discharge 05/08/25 12:15 Blood Culture - Preliminary Blood 05/08/25 12:15 Blood Culture - Preliminary Blood Discharge Plan Discharge Attending physician on discharge: Radnell Cortez Consulting providers: Joselin Bynum; Leonel Allen Discharging Clinician: Hailey Villalpando Patient Disposition: Home Activity: as tolerated Diet: heart healthy Discharge Instructions: patient to follow up with her primary care provider as soon as possible to resume some of her medications. , patient is instructed if any of her symptoms redevelop to go to nearest ER Patient Instructions: Antibiotic Form Patient Language: [place] Stand Alone Forms: General Discharge Information Follow-up/Referrals: Hesham,Jose August MD [Primary Care Provider] - Discharge Medications: New sodium bicarbonate 650 mg Tablet 650 mg PO DAILY Qty: 10 0RF magnesium oxide 400 mg (241.3 mg magnesium) tablet 400 mg PO DAILY Qty: 30 0RF Continued cyclobenzaprine 5 mg tablet 5 mg PO TID PRN (Reason: muscle spasm) Qty: 10 0RF Tymlos 80 mcg (3,120 mcg/1.56 mL) pen injector 3,120 mcg SUBCUT HS atorvastatin 40 mg tablet 40 mg PO HS allopurinol 100 mg tablet 100 mg PO DAILY amoxicillin-pot clavulanate 500-125 mg tablet 1 tablet PO Q12H folic acid 1 mg tablet 1 mg PO BID hydrocodone-acetaminophen 5-325 mg tablet 1 tablet PO PRN sulindac 150 mg tablet 150 mg PO DAILY nortriptyline 25 mg capsule 25 mg PO HS methotrexate sodium 2.5 mg tablet 15 mg PO WEEKLY cholecalciferol (vitamin D3) 50 mcg (2,000 unit) capsule 50 mcg PO DAILY Held cephalexin 500 mg capsule 500 mg PO Q12H 7 Days Qty: 14 0RF Hold Instructions: until seen by primary care provider dapagliflozin propanediol [Farxiga] 5 mg tablet 5 mg PO HS Hold Instructions: until seen by her primary care provider furosemide 20 mg tablet 20 mg PO .COMPLEX Hold Instructions: until seen by her primary care provider Rx Instructions: 20 mg orally twice a week; 2x per week; lisinopril 40 mg tablet 40 mg PO DAILY Hold Instructions: until seen by her primary care provider metformin 500 mg tablet 500 mg PO QID Hold Instructions: hold until seen by her primary care provider Date of admission: 05/09/25 17:00 Primary Care Provider: AbimaelJose Admitting Provider: Randell Cortez Attending physician on admission: Hailey Villalpando Condition: Stable
[2025-05-12] MEDS: MAGNESIUM OXIDE 400 MG TABLET 800 MG PO (15:06)
== END 2025-05-12 15:30 | disposition home or self-care (01) | DRG 469 ==
LOC: ANHED 14:13 → ANHIMU 15:23 → ANH3MEDSUR 05-12 11:30 → ANHIMU 05-13 15:16
PROVIDERS: Nurse Practitioner Gerontology; Admitting Provider Internal Medicine; Emergency Provider Emergency Medicine; PCP Internal Medicine; Visit Provider Family Medicine
DX: N17.9 Acute kidney failure, unspecified (principal); E86.0 Dehydration; K52.1 Toxic gastroenteritis and colitis; T36.8X5A Adverse effect of other systemic antibiotics, initial encounter; M06.9 Rheumatoid arthritis, unspecified; I10 Essential (primary) hypertension; Z90.49 Acquired absence of other specified parts of digestive tract; Z20.822 Contact with and (suspected) exposure to COVID-19; E87.21 Acute metabolic acidosis
CPT/HCPCS: 36415; 71045; 80048; 80053; 81001; 82948; 83605; 83690; 83735; 84100; 84145; 84484; 85025; 85027; 87040; 87637; 96361; 96365; 96375; 99285; A9270; G0378; G0379; J1644; J3475; J7030